=== PATIENT | male | born 1940 | race Caucasian/White ===

== ENCOUNTER → 2017-03-09 | Outpatient (CLI) | payer MEDICARE ==
[~2017-03-09] MED LIST: ASCO500C PO; ASPI-110 PO; ASPI81 PO; CALTTAB5 PO; CARV3.12 PO; CARV6.252 PO; CELE200C OR; OMEG600C2 PO; PREV30CA11 PO; PREV30CA36 PO; TAB-TAB PO; VYTO10TA29 PO; VYTO10TA8 PO
[2017-03-09 12:07] LABS: AUTOMATED NEUTROPHIL # 6.1 TH/MM3 (1.8-7.7); BASOPHIL # 0.1 TH/MM3 (0-0.2); BASOPHIL % 0.8 % (0.0-2.0); EOSINOPHIL # 0.5 TH/MM3 (0-0.4); EOSINOPHIL % 5.3 % (0.0-4.0); HEMO FLAGS DIFF FINAL; LYMPHOCYTE # 1.8 TH/MM3 (1.0-4.8); MEAN CORPUSCULAR HEMOGLOBIN 30.1 PG (27.0-34.0); MEAN CORPUSCULAR HGB CONC 33.4 % (32.0-36.0); MONO % 11.3 % (0.0-8.0); NEUT % 63.6 % (16.0-70.0); PLATELET COUNT 296 TH/MM3 (150-450); RED BLOOD COUNT 4.44 MIL/MM3 (4.50-5.90); RED CELL DISTRIBUTION WIDTH 12.8 % (11.6-17.2); WHITE BLOOD COUNT 9.6 TH/MM3 (4.0-11.0)
[2017-03-09 12:15] LABS: URIC ACID 3.6 MG/DL (2.6-7.2)
[2017-03-09 12:31] LABS: WESTERGREN SEDIMENTATION RATE 47 mm/hr (0-20)
== END ==
LOC: ELAB 10:19
PROVIDERS: ATTEND Orthopaedic Surgery Orthopaedic Surgery of the Spine
DX: N40.1 Benign prostatic hyperplasia with lower urinary tract symptoms (principal); M06.4 Inflammatory polyarthropathy
CPT/HCPCS: 36415; 84153; 84550; 85025; 85652; 86140

== ENCOUNTER 2017-10-23 21:37 | Inpatient (IN) | payer MEDICARE ==
[~2017-10-23] VITALS: Ht 182.9 cm; Wt 88.9 kg
[~2017-10-23 21:37] MED LIST changes: -ASCO500C PO; -ASPI-110 PO; +ASPI1TAB57 PO; -ASPI81 PO; -CALTTAB5 PO; -CARV3.12 PO; -CELE200C OR; -OMEG600C2 PO; +PRED5TAB PO; -PREV30CA11 PO; -TAB-TAB PO; -VYTO10TA29 PO
[2017-10-23 21:40] VITALS: BP 153/80; PULSE 73; RESP 16; TEMP 96.7; O2SAT 99
[2017-10-23] MEDS ORDERED: CELE200C PO (22:25)
--- NOTE | 2017-10-23 22:26 | PD ---
HPI Chief Complaint: GI Complaint Time Seen by Provider: 22:25 Travel History International Travel<30 days: No Contact w/Intl Traveler<30days: No Traveled to known affect area: No History of Present Illness HPI 77-year-old male came to the emergency room with history of hematochezia that started at 6:45 PM. Patient says that he had 10 polyps taken out during a colonoscopy about one week ago by Dr. Hernandez. He started having some abdominal discomfort 2 days later and was started on ciprofloxacin. However when the bleeding started today he called the GI office but did not hear back from anybody. In next one hour he had 3 more such episodes. Patient describes these bleeding as big clots being passed. History of point tenderness. Just generalized discomfort in the abdomen but no point tenderness. No history of vomiting or nausea. Vital signs were stable. Patient denies any weakness or dizziness. No syncopal episode. PFSH Past Medical History Narrative Medical List of his past medical, surgical, social and family history is reviewed from the nursing note. Cardiac Catheterization: Yes High Cholesterol: Yes Coronary Artery Disease: Yes Hypertension: Yes Immunizations Current: Yes Myocardial Infarction: Yes (x 2) Tetanus Vaccination: Unknown Influenza Vaccination: Yes Past Surgical History Coronary Artery Bypass Graft: Yes Genitourinary Surgery: Yes (turp) Other Surgery: Yes (pacemaker) Social History Alcohol Use: No Tobacco Use: No Substance Use: No Allergies-Medications (Allergen,Severity, Reaction): Coded Allergies: hydromorphone (Unverified Allergy, Severe, HALLUCINATIONS; AGITATION, 10/23) latex (Unverified Adverse Reaction, Severe, SKIN IRRITATION, 10/23/17) metoprolol (Unverified Adverse Reaction, Severe, FORGETS, BUT AVOIDS, 10/23) Comments List of his allergies reviewed from the nursing note. Reported Meds & Prescriptions Reported Meds & Active Scripts Active Reported Carvedilol 6.25 Mg Tab 6.25 Mg PO TID Prevacid (Lansoprazole) 30 Mg Capdr 30 Mg PO DAILY Vytorin (Ezetimibe-Simvastatin) 10-20 Mg Tab 1 Tab PO HS Narrative Medication List of his home medications reviewed from the nursing note. Review of Systems Except as stated in HPI: all other systems reviewed are Neg Gastrointestinal: Positive: Hematochezia Physical Exam Narrative GENERAL: Awake, alert, anxious, mild distress SKIN: Focused skin assessment warm/dry. HEAD: Atraumatic. Normocephalic. EYES: Pupils equal and round. No scleral icterus. No injection or drainage. ENT: No nasal bleeding or discharge. Mucous membranes pink and moist. NECK: Trachea midline. No JVD. CARDIOVASCULAR: Regular rate and rhythm. No murmur appreciated. RESPIRATORY: No accessory muscle use. Clear to auscultation. Breath sounds equal bilaterally. GASTROINTESTINAL: Abdomen soft, non-tender, nondistended. Hepatic and splenic margins not palpable. MUSCULOSKELETAL: No obvious deformities. No clubbing. No cyanosis. No edema. NEUROLOGICAL: Awake and alert. No obvious cranial nerve deficits. Motor grossly within normal limits. Normal speech. PSYCHIATRIC: Appropriate mood and affect; insight and judgment normal. Data Data Last Documented VS Orders Orders Basic Metabolic Panel (Bmp) (10/23/17 23:04) Complete Blood Count With Diff (10/23/17 23:04) Prothrombin Time / Inr (Pt) (10/23/17 23:04) Type And Screen (10/23/17 23:04) Ecg Monitoring (10/23/17 23:04) Iv Access Insert/Monitor (10/23/17 23:04) Oximetry (10/23/17 23:04) Sodium Chlor 0.9% 1000 Ml Inj (Ns 1000 M (10/23/17 23:04) Sodium Chloride 0.9% Flush (Ns Flush) (10/23/17 23:15) Admit Order (Ed Use Only) (10/24/17 00:03) Labs Laboratory Tests Test 10/23/17 23:20 White Blood Count 7.4 TH/MM3 Red Blood Count 5.08 MIL/MM3 Hemoglobin 15.7 GM/DL Hematocrit 46.2 % Mean Corpuscular Volume 91.0 FL Mean Corpuscular Hemoglobin 30.9 PG Mean Corpuscular Hemoglobin Concent 34.0 % Red Cell Distribution Width 13.0 % Platelet Count 288 TH/MM3 Mean Platelet Volume 8.7 FL Neutrophils (%) (Auto) 40.1 % Lymphocytes (%) (Auto) 41.7 % Monocytes (%) (Auto) 9.8 % Eosinophils (%) (Auto) 7.4 % Basophils (%) (Auto) 1.0 % Neutrophils # (Auto) 3.0 TH/MM3 Lymphocytes # (Auto) 3.1 TH/MM3 Monocytes # (Auto) 0.7 TH/MM3 Eosinophils # (Auto) 0.5 TH/MM3 Basophils # (Auto) 0.1 TH/MM3 CBC Comment DIFF FINAL Differential Comment Prothrombin Time 10.0 SEC Prothromb Time International Ratio 1.0 RATIO Blood Urea Nitrogen 10 MG/DL Creatinine 0.81 MG/DL Random Glucose 92 MG/DL Calcium Level 8.8 MG/DL Sodium Level 139 MEQ/L Potassium Level 4.1 MEQ/L Chloride Level 103 MEQ/L Carbon Dioxide Level 29.9 MEQ/L Anion Gap 6 MEQ/L Estimat Glomerular Filtration Rate 93 ML/MIN MDM Medical Decision Making Medical Screen Exam Complete: Yes Emergency Medical Condition: Yes Medical Record Reviewed: Yes Differential Diagnosis Lower GI bleed Narrative Course 12:08 AM blood test results of back and H&H are stable. I have put a call out for GI for Dr. Hernandez or whoever is covering for him. I have not heard back yet. I have admitted the patient to his primary care physician. Patient is getting 1 L of IV fluid bolus. 12:27 AM I discussed the case with the GI specialist who was healthcare applications analyst and he recommended octreotide bolus and a drip which has been ordered. Procedures EKG Prior to Arrival: No HemaPrompt Point of Care Internal Pos. & Neg. Controls: Passed Fecal Specimen Occult Blood: Positive Comment Gross blood on the gloved finger Diagnosis Primary Impression: Hematochezia Admitting Information Admitting Physician Requests: Admit Ken Chino MD Oct 23, 2017 22:26
[2017-10-23] MEDS ORDERED: SODIUM CHLOR 0.9% 1000 ML INJ 1,000 ML IV SCH (23:04)
[2017-10-23] MEDS ORDERED: SODIUM CHLORIDE 0.9% FLUSH 10 ML FLUSH IVF PRN (23:15)
[2017-10-23 23:22] VITALS: BP 184/88; PULSE 65; RESP 15; O2SAT 99
[2017-10-23 23:27] LABS: BASOPHIL # 0.1 TH/MM3 (0-0.2); EOSINOPHIL # 0.5 TH/MM3 (0-0.4); EOSINOPHIL % 7.4 % (0.0-4.0); HEMATOCRIT 46.2 % (39.0-51.0); HEMO FLAGS DIFF FINAL; LYMPH % 41.7 % (9.0-44.0); LYMPHOCYTE # 3.1 TH/MM3 (1.0-4.8); MEAN CORPUSCULAR HEMOGLOBIN 30.9 PG (27.0-34.0); MONO % 9.8 % (0.0-8.0); NEUT % 40.1 % (16.0-70.0); PLATELET COUNT 288 TH/MM3 (150-450); RED BLOOD COUNT 5.08 MIL/MM3 (4.50-5.90); WHITE BLOOD COUNT 7.4 TH/MM3 (4.0-11.0)
[2017-10-23 23:46] LABS: BICARBONATE 29.9 MEQ/L (21.0-32.0); POTASSIUM 4.1 MEQ/L (3.5-5.1)
[2017-10-23 23:56] VITALS: BP 175/81; PULSE 68; RESP 16; O2SAT 99
[2017-10-24] VITALS (8 sets, daily range): BP systolic 109–191; BP diastolic 56–87; PULSE 66–81; RESP 12–18; TEMP 97.7–98.5; O2SAT 94–98
[2017-10-24] MEDS ORDERED: NALOXONE HCL 0.4 MG/ML AMP IV PUSH PRN ×2 (00:15→17:30)
[2017-10-24] MEDS ORDERED: SODIUM CHLORIDE 0.9% FLUSH 10 ML FLUSH IV FLUSH PRN (00:15)
[2017-10-24] MEDS ORDERED: OCTREOTIDE INJ 50 MCG/ML AMP IV PUSH ONE (00:30)
[2017-10-24] MEDS: OCTREOTIDE INJ 500 MCG in SODIUM CHLORID 0.9% 500 ML INJ 499.5 ML IV SCH ×3 (02:16→21:41)
[2017-10-24] MEDS: CARVEDILOL 6.25 MG TAB PO SCH ×3 (08:14→17:45)
[2017-10-24] MEDS: SODIUM CHLORIDE 0.9% FLUSH 10 ML FLUSH IV FLUSH SCH ×2 (08:14→21:00)
[2017-10-24] MEDS: PANTOPRAZOLE SOD 40 MG DELAYED RELEASE TAB PO SCH (08:15)
--- NOTE | 2017-10-24 09:44 | HHI.HP ---
History of Present Illness Service Medicine Primary Care Physician Noe Howard, DO Admission Diagnosis lower GI bleed Diagnoses: (1) GI bleed (2) Abdominal pain History of Present Illness 77-year-old male came to the emergency room with history of hematochezia that started at 6:45 PM. Patient says that he had 10 polyps taken out during a colonoscopy about one week ago by Dr. Hernandez. He started having some abdominal discomfort 2 days later and was started on ciprofloxacin. However when the bleeding started today he called the GI office but did not hear back from anybody. In next one hour he had 3 more such episodes. Patient describes these bleeding as big clots being passed. History of point tenderness. Just generalized discomfort in the abdomen but no point tenderness. Review of Systems Respiratory: DENIES: Hemoptysis, Shortness of breath Cardiovascular: DENIES: Chest pain, Palpitations Gastrointestinal: COMPLAINS OF: Abdominal pain, Bloody stools Neurologic: DENIES: Headache, Seizures Psychiatric: DENIES: Anxiety, Confusion Past Family Social History Allergies: Coded Allergies: hydromorphone (Unverified Allergy, Severe, HALLUCINATIONS; AGITATION, 10/23) latex (Unverified Adverse Reaction, Severe, SKIN IRRITATION, 10/23/17) metoprolol (Unverified Adverse Reaction, Severe, FORGETS, BUT AVOIDS, 10/23) Past Medical History CAD HLD HTN Past Surgical History Coronary Artery Bypass Graft: Yes Genitourinary Surgery: Yes (turp) Other Surgery: Yes (pacemaker) Active Ordered Medications Current Medications Medications (Trade) Dose Ordered Sig/Jerilyn Route Start Time Stop Time Status Last Admin (NS Flush) 2 ml UNSCH PRN IV FLUSH 10/24/17 00:15 (NS Flush) 2 ml BID IV FLUSH 10/24/17 09:00 (Narcan Inj) 0.4 mg UNSCH PRN IV PUSH 10/24/17 00:15 (Coreg) 6.25 mg TID PO 10/24/17 09:00 10/24/17 08:14 (Protonix) 40 mg DAILY PO 10/24/17 09:00 10/24/17 08:15 Octreotide Acetate 500 mcg/ Sodium Chloride 500 ml @ 50 mls/hr Q10H IV 10/24/17 00:26 10/24/17 02:16 (Zetia) 10 mg HS PO 10/24/17 21:00 (Pravachol) 40 mg HS PO 10/24/17 21:00 Family History Mother with history of lung cancer Father heart disease Social History Denies smoking or ETOH use Lives with retired Physical Exam Vital Signs Vital Signs Date Time Temp Pulse Resp B/P (MAP) Pulse Ox O2 Delivery O2 Flow Rate FiO2 10/24/17 07:42 98.1 66 18 165/83 (110) 98 10/24/17 07:29 68 10/24/17 03:55 10/24/17 03:22 97.9 74 17 147/70 (95) 96 10/24/17 01:46 75 12 151/67 (95) 97 Room Air 10/23/17 23:56 68 16 175/81 (112) 99 Room Air 10/23/17 23:22 65 15 184/88 (120) 99 Room Air 10/23/17 21:40 96.7 73 16 153/80 (104) 99 Room Air Physical Exam GENERAL: This is a well-nourished, well-developed patient, in no apparent distress. SKIN: No rashes, ecchymoses or lesions. Cool and dry. HEAD: Atraumatic. Normocephalic. No temporal or scalp tenderness. EYES: Pupils equal round and reactive. Extraocular motions intact. No scleral icterus. No injection or drainage. ENT: Nose without bleeding, purulent drainage or septal hematoma. Throat without erythema, tonsillar hypertrophy or exudate. Uvula midline. Airway patent. NECK: Trachea midline. No JVD or lymphadenopathy. Supple, nontender, no meningeal signs. CARDIOVASCULAR: Regular rate and rhythm without murmurs, gallops, or rubs. RESPIRATORY: Clear to auscultation. Breath sounds equal bilaterally. No wheezes , rales, or rhonchi. GASTROINTESTINAL: Abdomen soft, non-tender, nondistended. No hepato-splenomegaly , or palpable masses. No guarding. MUSCULOSKELETAL: Extremities without clubbing, cyanosis, or edema. No joint tenderness, effusion, or edema noted. No calf tenderness. Negative Homans sign bilaterally. NEUROLOGICAL: Awake and alert. Cranial nerves II through XII intact. Motor and sensory grossly within normal limits. Five out of 5 muscle strength in all muscle groups. Normal speech. Laboratory Laboratory Tests Test 10/23/17 23:20 White Blood Count 7.4 Red Blood Count 5.08 Hemoglobin 15.7 Hematocrit 46.2 Mean Corpuscular Volume 91.0 Mean Corpuscular Hemoglobin 30.9 Mean Corpuscular Hemoglobin Concent 34.0 Red Cell Distribution Width 13.0 Platelet Count 288 Mean Platelet Volume 8.7 Neutrophils (%) (Auto) 40.1 Lymphocytes (%) (Auto) 41.7 Monocytes (%) (Auto) 9.8 Eosinophils (%) (Auto) 7.4 Basophils (%) (Auto) 1.0 Neutrophils # (Auto) 3.0 Lymphocytes # (Auto) 3.1 Monocytes # (Auto) 0.7 Eosinophils # (Auto) 0.5 Basophils # (Auto) 0.1 CBC Comment DIFF FINAL Differential Comment Prothrombin Time 10.0 Prothromb Time International Ratio 1.0 Blood Urea Nitrogen 10 Creatinine 0.81 Random Glucose 92 Calcium Level 8.8 Sodium Level 139 Potassium Level 4.1 Chloride Level 103 Carbon Dioxide Level 29.9 Anion Gap 6 Estimat Glomerular Filtration Rate 93 Result Diagram: 10/23/17231910/23/172319 Caprini VTE Risk Assessment Caprini VTE Risk Assessment: No/Low Risk (score <= 1) VTE Pharm Contraindication: Active bleeding Caprini Risk Assessment Model Point Value = 1 Point Value = 2 Point Value = 3 Point Value = 5 Age 41-60 Minor surgery BMI > 25 kg/m2 Swollen legs Varicose veins or History of unexplained or recurrent spontaneous Oral contraceptives or hormone replacement Sepsis (< 1 month) Serious lung disease, including pneumonia (< 1 month) Abnormal pulmonary function Acute myocardial infarction Congestive heart failure (< 1 month) History of inflammatory bowel disease Medical patient at bed rest Age 61-74 Arthroscopic surgery Major open surgery (> 45 min) Laparoscopic surgery (> 45 min) Malignancy Confined to bed (> 72 hours) Immobilizing plaster cast Central venous access Age >= 75 History of VTE Family history of VTE Factor V Leiden Prothrombin [id number] Lupus anticoagulant Anticardiolipin antibodies Elevated serum homocysteine Heparin-induced thrombocytopenia Other congenital or acquired thrombophilia Stroke (< 1 month) Elective arthroplasty Hip, pelvis, or leg fracture Acute spinal cord injury (< 1 month) Prophylaxis Regimen Total Risk Factor Score Risk Level Prophylaxis Regimen 0-1 Low Early ambulation 2 Moderate Order ONE of the following: *Sequential Compression Device (SCD) *Heparin 5000 units SQ BID 3-4 Higher Order ONE of the following medications: *Heparin 5000 units SQ TID *Enoxaparin/Lovenox 40 mg SQ daily (WT < 150 kg, CrCl > 30 mL/min) *Enoxaparin/Lovenox 30 mg SQ daily (WT < 150 kg, CrCl > 10-29 mL/min) *Enoxaparin/Lovenox 30 mg SQ BID (WT < 150 kg, CrCl > 30 mL/min) AND/OR *Sequential Compression Device (SCD) 5 or more Highest Order ONE of the following medications: *Heparin 5000 units SQ TID (Preferred with Epidurals) *Enoxaparin/Lovenox 40 mg SQ daily (WT < 150 kg, CrCl > 30 mL/min) *Enoxaparin/Lovenox 30 mg SQ daily (WT < 150 kg, CrCl > 10-29 mL/min) *Enoxaparin/Lovenox 30 mg SQ BID (WT < 150 kg, CrCl > 30 mL/min) AND *Sequential Compression Device (SCD) Assessment and Plan Problem List: (1) Hematochezia ICD Codes: K92.1 - Melena Status: Acute (2) Abdominal pain ICD Codes: R10.9 - Unspecified abdominal pain Assessment and Plan 10/24/17 Hematochezia: GI consulted. Clear liquid diet and sandostatin drip. Frequent bloody stools. Hemoglobin is stable at 15.7. Colonscopy done 1 week ago with over 10 polyps removed. Has had abdominal discomfort since that point was started on ciprofloxacin outpatient. HTN; continue home medications well controlled on coreg HLD: continue home medications Labs in am I and the TAX COLLECTION COORDINATOR have both examined this patient and reviewed this note and I agree with these findings and plan of care. Maribeth Manriquez Oct 24, 2017 09:44
[2017-10-24] MEDS: cloNIDine HCL 0.1 MG TAB PO PRN (12:01)
[2017-10-24] MEDS: ACETAMINOPHEN 325 MG TAB PO PRN (13:47)
--- NOTE | 2017-10-24 15:54 | MB ---
cc: ANTONIO CINTRON MD,SG LOWE D.O., M.D. DATE OF CONSULTATION: 10/24/2017 DATE OF : 1940 REASON FOR CONSULTATION I was asked to see this patient in consultation by Dr. Howard for evaluation of GI bleed. I saw the patient at about 10:45 this morning but was unable to dictate until now. HISTORY OF PRESENT ILLNESS The patient is a pleasant 77-year-old white male with a history of multiple advanced colon polyps. He had a colonoscopy done on October 17 and the patient had a polyp removed from the cecum, ascending colon, transverse colon as well as descending colon. There was also scattered diverticula throughout the colon. The polyps were removed via hot polypectomy technique. There was also a polyp in the ascending colon which could not be removed. A day or so after the procedure complained of right lower quadrant pain and thought he may have some form of post-polypectomy syndrome. He was given Cipro and this resolved his pain. Unfortunately yesterday early he had multiple episodes of bright red blood per rectum. He became light-headed, somewhat dizzy and he came to the emergency room. Hemoglobin was 15.7. At the time I saw him in the emergency room he was still passing bright red blood per rectum. He denies any dysphagia, odynophagia, nausea or vomiting. No melena. His abdominal pain has resolved. No fever or chills. He does take aspirin as well as Celebrex but no other blood thinners. PAST MEDICAL HISTORY 1. Adenomatous polyps and serrated adenomas. 2. Coronary artery disease. 3. Gastroesophageal reflux disease. 4. Hypertension. 5. Dyslipidemia. PAST SURGICAL HISTORY 1. TURP. 2. Coronary artery bypass graft. 3. Some type of neck surgery. 4. Possible pacemaker. ALLERGIES 1. LATEX. 2. METOPROLOL. 3. HYDROMORPHONE. FAMILY HISTORY Significant for coronary artery disease but no colon cancer or colon polyps. SOCIAL HISTORY He is a former smoker, stopped drinking in 2008. REVIEW OF SYSTEMS CONSTITUTIONAL: No weight loss, fever or chills. CARDIOPULMONARY: No chest pain, palpitations, wheezing or SOB GASTROINTESTINAL: Please see above. Otherwise unremarkable 10-point review of systems. MEDICATIONS Medications at this time include: 1. Zetia. 2. Pravachol. 3. Tylenol. 4. Catapres. 5. Norvasc. 6. Coreg. 7. Protonix. 8. Narcan. As an outpatient he has been gettin. Aspirin. 2. Celebrex. 3. Caltrate. 4. Vytorin. 5. Lansoprazole. 6. Carvedilol. 7. Flonase. 8. Gas-X. PHYSICAL EXAMINATION VITAL SIGNS: Blood pressure when I first saw him this morning was 165/83, pulse 66, respiratory rate 18, temperature 98.1. GENERAL: He is a well-developed, well-nourished white male who appears in no acute distress, although he did have a bowel motion which showed bright red blood per rectum. He did not appear to be orthostatic. NECK: Supple. No thyromegaly or lymphadenopathy. HEENT: Pupils equal, round and reactive to light. No scleral icterus. Oropharyngeal cavity has dental caries. No tongue deviation or candidal lesion. Hearing is intact. LUNGS: Clear to auscultation and percussion. HEART: Regular rhythm. No gross murmurs heard. ABDOMEN: Soft, nondistended, nontender. No organomegaly or masses. No ascites or hernias. Bowel sounds positive in all quadrants. RECTAL: I did not do a rectal exam but the ER doctor did and bright red blood was noted. EXTREMITIES: No clubbing, cyanosis or edema. NEUROLOGIC: Cranial nerves II through XII are grossly intact. SKIN: Warm and moist. DATA BASE Hemoglobin was 15.7, hematocrit 46.2, MCV 91, white blood count of 7400, platelet count 288,000. BUN 10, creatinine 0.81, potassium 4.1. Prothrombin time is 10, INR 1.0. IMPRESSION 1. Lower GI bleeding/hematochezia: Patient may have a post-polypoid bleed, could also be diverticular bleeding. The chance of upper GI bleed is low in the differential as there are no black stools and BUN and creatinine are normal. 2. History of colon polyps, multiple: He had serrated adenomas; these are considered advanced polyps. One polyp in the ascending could not be removed. He had multiple polypectomies mentioned above. 3. Colonic diverticulosis scattered throughout. 4. Right lower quadrant pain resolved. This might have been a post-polypectomy syndrome, a non-transmural burn. It is better at this time. RECOMMENDATIONS 1. Transfuse as needed. 2. Follow up labs. 3. Octreotide; this was suggested by myself to the ER physician last night. 4. At this point consideration for either a colonoscopy with rapid clean-out first, bleeding scan or angiography. We talked about the merits of all this testing. The colonoscopy would involve another prep and he is somewhat hesitant about that. He also understands that he has some right lower quadrant pain and there may be some thinning of the bowel wall and you worry about perforation. He wants to avoid another colonoscopy and decided to go directly to arteriogram. After discussion with radiology they suggested a stat. bleeding scan first (nuclear medicine bleeding scan) before they do an arteriogram. 5. Further recommendations depending on how he does. Sg Dillard MD SP/YOU /2:57 PM /3:13 PM INDU
--- NOTE | 2017-10-24 17:06 | RADRPT ---
EXAM DATE/TIME: 10/24/2017 14:32 [facility] COMPARISON: No previous studies available for comparison. INDICATIONS : Blood in stool with abdominal pain, nausea and vomiting. DOSE: 20.7 mCi Tc99m Ultratag labeled red blood cells IV IMAGIN hrs MEDICAL HISTORY : Myocardial infarction. Gastroesophageal reflux disease. Hypercholesterolemia. SURGICAL HISTORY : Total knee replacement, right. Tonsillectomy. CABG ENCOUNTER: Initial ACUITY: 3 days PAIN SCALE: 3/10 LOCATION: Abdomen. TECHNIQUE: Following the modified in vitro labeling of autologous red cells, dynamic continuous images were acqu ired for the specified interval. FINDINGS: BIODISTRIBUTION: There is a very good labeling of red cells without significant uptake in the gastric wall. There is good delineation of the blood pool of the spleen and abdominal vessels. BLEEDING: No episodes of active GI bleeding are observed during specified interval of continuous observation. CONCLUSION: 1. Negative gastrointestinal bleeding scan Terry Redd MD on October 24, 2017 at 17:03 Board Certified Radiologist. This report was verified electronically.
[2017-10-24] MEDS ORDERED: FLUMAZENIL 0.5 MG/5 ML VIAL IV PUSH PRN ×2 (17:30)
[2017-10-24 18:38] LABS: AUTOMATED NEUTROPHIL # 2.9 TH/MM3 (1.8-7.7); BASOPHIL # 0.1 TH/MM3 (0-0.2); BASOPHIL % 1.1 % (0.0-2.0); EOSINOPHIL # 0.1 TH/MM3 (0-0.4); EOSINOPHIL % 1.6 % (0.0-4.0); HEMATOCRIT 29.3 % (39.0-51.0); HEMO FLAGS DIFF FINAL; LYMPH % 36.3 % (9.0-44.0); MEAN CELL VOLUME 91.8 FL (80.0-100.0); MEAN CORPUSCULAR HEMOGLOBIN 31.9 PG (27.0-34.0); MEAN CORPUSCULAR HGB CONC 34.8 % (32.0-36.0); PLATELET COUNT 225 TH/MM3 (150-450); WHITE BLOOD COUNT 5.5 TH/MM3 (4.0-11.0)
[2017-10-24] MEDS ORDERED: NON-FORMULARY DRUG (Ezetimibe-Simvastatin (Vytorin) 1 TAB) PO SCH (21:00)
[2017-10-24] MEDS: EZETIMIBE 10 MG TAB PO SCH (21:41)
[2017-10-24] MEDS: PRAVASTATIN SOD 40 MG TAB PO SCH (21:41)
[2017-10-25] VITALS (11 sets, daily range): BP systolic 104–142; BP diastolic 56–73; PULSE 60–114; RESP 17–20; TEMP 95.2–98.2; O2SAT 97–100
[2017-10-25] MEDS: ACETAMINOPHEN 325 MG TAB PO PRN ×3 (00:12→16:00)
[2017-10-25] MEDS: OCTREOTIDE INJ 500 MCG in SODIUM CHLORID 0.9% 500 ML INJ 499.5 ML IV SCH ×2 (06:11→16:14)
[2017-10-25 08:24] LABS: AUTOMATED NEUTROPHIL # 3.3 TH/MM3 (1.8-7.7); BASOPHIL # 0.1 TH/MM3 (0-0.2); EOSINOPHIL # 0.2 TH/MM3 (0-0.4); EOSINOPHIL % 3.5 % (0.0-4.0); HEMATOCRIT 28.2 % (39.0-51.0); HEMO FLAGS DIFF FINAL; LYMPH % 35.4 % (9.0-44.0); LYMPHOCYTE # 2.3 TH/MM3 (1.0-4.8); MEAN CELL VOLUME 90.7 FL (80.0-100.0); MEAN CORPUSCULAR HEMOGLOBIN 30.7 PG (27.0-34.0); MEAN CORPUSCULAR HGB CONC 33.8 % (32.0-36.0); MONO % 9.8 % (0.0-8.0); NEUT % 50.3 % (16.0-70.0); PLATELET COUNT 228 TH/MM3 (150-450); RED BLOOD COUNT 3.11 MIL/MM3 (4.50-5.90); WHITE BLOOD COUNT 6.5 TH/MM3 (4.0-11.0)
[2017-10-25 08:30] LABS: INTERNATIONAL NORMALIZED RATIO 1.1 RATIO; PROTHROMBIN TIME - PATIENT 10.8 SEC (9.8-11.6)
--- NOTE | 2017-10-25 08:49 | HHI.GIFU ---
GI Follow-up Note Consult Follow-up Subjective: Patient just had BM-old blood. This ius his first BM since yesterday afternoon. RN reports pt fell in bathroom. Objective: PHYSICAL EXAMINATION: Vitals signs stable No fever NECK: Neck is supple, no JVD, no lymphadenopathy. CHEST: Chest is clear to auscultation and percussion. CARDIAC: Regular rate and rhythm with no murmur gallop or rubs. ABDOMEN: Soft, nondistended, nontender; no hepatosplenomegaly; bowel sounds are present in all four quadrants. EXTREMITIES: No cedema. SKIN: No jaundice. SHIRT TRIMMER: alert and oriented times three. Available Data (labs, X- Rays, Procedues) : hgb 10.2--9.6 this am ASSESSMENT/PLAN: 1. Lower GI bleeding/hematochezia: better. may be related to polypectomies--, could also be diverticular bleeding. 2. History of colon polyps, multiple 3. Colonic diverticulosis scattered throughout. 4. Right lower quadrant pain resolved. 5. recent fall-your W/U in this regard RECOMMENDATIONS 1. Transfuse as needed. 2. Follow up labs. 3. Octreotide -cont for now 4. clear liquids It was a pleasure seeing Thierry Bales. Thank you for this consult. Entered by: Sg Mario MD Oct 25, 2017 08:49
[2017-10-25 08:51] LABS: ALT (GPT) 15 U/L (12-78); ANION GAP 6 MEQ/L (5-15); AST (GOT) 14 U/L (15-37); BLOOD UREA NITROGEN 11 MG/DL (7-18); CHLORIDE 109 MEQ/L (98-107); GLOMERULAR FILTRATION RATE 113 ML/MIN (>89); POTASSIUM 4.2 MEQ/L (3.5-5.1); SODIUM (NA) 144 MEQ/L (136-145)
[2017-10-25 08:54] LABS: ALKALINE PHOSPHATASE 48 U/L (45-117); TOTAL BILIRUBIN ADULT 0.3 MG/DL (0.2-1.0)
[2017-10-25] MEDS: SODIUM CHLORIDE 0.9% FLUSH 10 ML FLUSH IV FLUSH SCH ×2 (09:00→20:10)
[2017-10-25] MEDS: PANTOPRAZOLE SOD 40 MG DELAYED RELEASE TAB PO SCH (09:19)
[2017-10-25] MEDS: CARVEDILOL 6.25 MG TAB PO SCH ×3 (09:19→16:09)
--- NOTE | 2017-10-25 11:43 | HHI.PR ---
Subjective Remarks Patient resting comfortably in bed. Blood stools have improved since yesterday. fall reported per nursing Objective Vital Signs Date Time Temp Pulse Resp B/P (MAP) Pulse Ox O2 Delivery O2 Flow Rate FiO2 10/25/17 11:20 96.4 61 18 134/62 (86) 100 10/25/17 09:20 95.8 70 18 135/62 (86) 97 10/25/17 08:00 96.6 60 18 133/68 (89) 100 10/25/17 04:15 96.9 67 17 139/73 (95) 99 10/25/17 02:05 96.8 60 17 129/72 (91) 98 10/25/17 00:37 98.2 64 18 104/56 (72) 98 10/24/17 20:34 98.5 72 18 109/56 (73) 94 10/24/17 13:32 98.3 81 18 134/75 (94) 96 I/O 10/24/17 10/24/17 10/24/17 10/25/17 10/25/17 10/25/17 07:00 15:00 23:00 07:00 15:00 23:00 Intake Total 640 ml Balance 640 ml Intake Oral 240 ml IV Total 400 ml # Voids 0 # Bowel Movements 0 Result Diagram: 10/25/17 0630 10/25/17 0630 Imaging Last 72 hours Impressions GI Bleed Scan Nuclear Medicine 10/24/17 0000 Signed Impressions: Service Date/Time: Tuesday, October 24, 2017 14:32 - CONCLUSION: 1. Negative gastrointestinal bleeding scan Terry Redd MD Objective Remarks GENERAL: alert and cooperative SKIN: Warm and dry. HEAD: Normocephalic. EYES: No scleral icterus. No injection or drainage. NECK: Supple, trachea midline. No JVD or lymphadenopathy. CARDIOVASCULAR: Regular rate and rhythm without murmurs, gallops, or rubs. RESPIRATORY: Breath sounds equal bilaterally. No accessory muscle use. GASTROINTESTINAL: Abdomen soft, non-tender, nondistended. MUSCULOSKELETAL: No cyanosis, or edema. BACK: Nontender without obvious deformity. No CVA tenderness. Medications and IVs Current Medications Medications (Trade) Dose Ordered Sig/Jerilyn Route Start Time Stop Time Status Last Admin (NS Flush) 2 ml UNSCH PRN IV FLUSH 10/24/17 00:15 (NS Flush) 2 ml BID IV FLUSH 10/24/17 09:00 (Narcan Inj) 0.4 mg UNSCH PRN IV PUSH 10/24/17 00:15 (Coreg) 6.25 mg TID PO 10/24/17 09:00 10/25/17 09:19 (Protonix) 40 mg DAILY PO 10/24/17 09:00 10/25/17 09:19 Octreotide Acetate 500 mcg/ Sodium Chloride 500 ml @ 50 mls/hr Q10H IV 10/24/17 00:26 10/25/17 06:11 (Zetia) 10 mg HS PO 10/24/17 21:00 10/24/17 21:41 (Pravachol) 40 mg HS PO 10/24/17 21:00 10/24/17 21:41 (Catapres) 0.1 mg Q6H PRN PO 10/24/17 11:45 10/24/17 12:01 (Norvasc) 10 mg DAILY PO 10/24/17 11:45 (Tylenol) 650 mg Q4H PRN PO 10/24/17 13:15 10/25/17 09:19 Assessment and Plan Problem List: (1) Hematochezia ICD Codes: K92.1 - Melena Status: Acute (2) Abdominal pain ICD Codes: R10.9 - Unspecified abdominal pain Assessment and Plan 10/24/17 Hematochezia: GI consulted. Clear liquid diet and sandostatin drip. Frequent bloody stools. Hemoglobin is stable at 15.7. Colonscopy done 1 week ago with over 10 polyps removed. Has had abdominal discomfort since that point was started on ciprofloxacin outpatient. HTN; continue home medications well controlled on coreg HLD: continue home medications Labs in am 10/25/07 Hematochezia: GI consulted. Bleeding scan ordered and negative scan for bleeding. Continued on Clear liquid diet and sandostatin drip. Bloody stools improved. Hemoglobin is stable dropped to 9.6 today will transfuse as needed. Per GI note may be related to polypectomies. HTN; elevated yesterday. amlodipine added and prn clonidine s/p fall: fall reported per nursing. Neuro checks every 4 hours. Will order PT and OT. Right shoulder and back discomfort reported that was relieved with tylenol I and the NETWORK RELAY TESTER have both examined this patient and reviewed this note and I agree with these findings and plan of care. Maribeth Manriquez. NETWORK RELAY TESTER Oct 25, 2017 11:43
[2017-10-25] MEDS ORDERED: HYOSCYAMINE 0.125 MG TAB SL PRN (19:45)
[2017-10-25] MEDS: LANSOPRAZOLE SOLUTAB 30 MG TAB PO SCH (19:58)
[2017-10-25] MEDS: PRAVASTATIN SOD 40 MG TAB PO SCH (19:58)
[2017-10-25] MEDS: EZETIMIBE 10 MG TAB PO SCH (19:59)
[2017-10-25] MEDS: SIMETHICONE 80 MG CHEWABLE TAB PO PRN (21:05)
[2017-10-26] VITALS (7 sets, daily range): BP systolic 103–152; BP diastolic 50–69; PULSE 63–100; RESP 17–18; TEMP 96.1–96.8; O2SAT 94–97
[2017-10-26] MEDS: SIMETHICONE 80 MG CHEWABLE TAB PO PRN ×4 (01:21→18:05)
[2017-10-26] MEDS: OCTREOTIDE INJ 500 MCG in SODIUM CHLORID 0.9% 500 ML INJ 499.5 ML IV SCH (02:41)
[2017-10-26] MEDS: ACETAMINOPHEN 325 MG TAB PO PRN (02:44)
[2017-10-26] MEDS: ACETAMINOPHEN/HYDROcodone 325 MG/5 MG TAB PO PRN ×2 (08:01→13:37)
[2017-10-26] MEDS: CARVEDILOL 6.25 MG TAB PO SCH ×3 (08:03→18:05)
[2017-10-26] MEDS: SODIUM CHLORIDE 0.9% FLUSH 10 ML FLUSH IV FLUSH SCH ×2 (08:03→20:04)
[2017-10-26 08:13] LABS: AUTOMATED NEUTROPHIL # 7.6 TH/MM3 (1.8-7.7); BASOPHIL % 0.4 % (0.0-2.0); EOSINOPHIL % 0.3 % (0.0-4.0); HEMATOCRIT 23.7 % (39.0-51.0); HEMO FLAGS DIFF FINAL; LYMPHOCYTE # 1.2 TH/MM3 (1.0-4.8); MEAN CELL VOLUME 90.8 FL (80.0-100.0); MEAN CORPUSCULAR HGB CONC 35.2 % (32.0-36.0); MONO % 10.6 % (0.0-8.0); NEUT % 76.7 % (16.0-70.0); PLATELET COUNT 191 TH/MM3 (150-450); RED BLOOD COUNT 2.61 MIL/MM3 (4.50-5.90); RED CELL DISTRIBUTION WIDTH 12.6 % (11.6-17.2); WHITE BLOOD COUNT 9.9 TH/MM3 (4.0-11.0)
[2017-10-26 08:19] LABS: BICARBONATE 27.1 MEQ/L (21.0-32.0); POTASSIUM 3.6 MEQ/L (3.5-5.1)
--- NOTE | 2017-10-26 09:24 | HHI.GIFU ---
GI Follow-up Note Consult Follow-up Subjective: Patient laying in bed comfortably this am. had upper abd pain last PM. pain improved with Levsin. pt also wanted Prevacid instead of Protonix. some GERD-better this am. No BM or bleeding seen. No N/V Objective: PHYSICAL EXAMINATION: 135/59-69-18 No fever HEENT: no jaundice. Throat is clear. NECK: no JVD, no lymphadenopathy. CHEST: Chest is clear to auscultation and percussion. CARDIAC: Regular rate and rhythm with no murmur gallop or rubs. ABDOMEN: Soft, nondistended, nontender; no hepatosplenomegaly; bowel sounds are present in all four quadrants. EXTREMITIES: No clubbing, cyanosis, or edema. SKIN: no rash; no jaundice. HEAD TRIMMER: alert and oriented times three. Available Data (labs, X- Rays, Procedues) : hgb dropped to 8.3 but no overt gi bleeding seen ASSESSMENT/PLAN: 1. Lower GI bleeding/hematochezia: none today. may be related to polypectomies could also be diverticular bleeding. 2. History of colon polyps, multiple 3. Colonic diverticulosis scattered throughout. 4. Right lower quadrant pain resolved. 5. recent fall 6. Upper abd pain/GERD RECOMMENDATIONS 1. Transfuse as needed. 2. Follow up labs-amylase/lipase/lft 3. D/C Octreotide 4. soft diet 5. If upper abd pain returns-will do CT scan It was a pleasure seeing Thierry Bales. Thank you for this consult. Entered by: Sg Mario MD Oct 26, 2017 09:24
--- NOTE | 2017-10-26 10:43 | HHI.PR ---
Subjective Remarks Patient complaining pain in back region. Tender on palpation. Objective Vital Signs Date Time Temp Pulse Resp B/P (MAP) Pulse Ox O2 Delivery O2 Flow Rate FiO2 10/26/17 08:00 96.5 69 18 135/59 (84) 95 10/26/17 04:15 96.8 80 17 127/62 (83) 95 10/26/17 00:38 96.7 64 18 142/69 (93) 97 10/25/17 20:00 97.8 60 18 128/56 (80) 98 10/25/17 19:50 97.8 60 18 128/56 (80) 98 10/25/17 16:00 95.6 68 18 142/71 (94) 100 10/25/17 15:03 73 10/25/17 11:20 96.4 61 18 134/62 (86) 100 I/O 10/25/17 10/25/17 10/25/17 10/26/17 10/26/17 10/26/17 07:00 15:00 23:00 07:00 15:00 23:00 Intake Total 640 ml 720 ml 360 ml 740 ml Balance 640 ml 720 ml 360 ml 740 ml Intake Oral 240 ml 720 ml 360 ml 240 ml IV Total 400 ml 500 ml # Voids 0 2 2 1 # Bowel Movements 0 1 0 0 Result Diagram: 10/26/17 0650 10/26/17 0650 Imaging Last 72 hours Impressions GI Bleed Scan Nuclear Medicine 10/24/17 0000 Signed Impressions: Service Date/Time: Tuesday, October 24, 2017 14:32 - CONCLUSION: 1. Negative gastrointestinal bleeding scan Terry Redd MD Objective Remarks GENERAL: alert and cooperative SKIN: Warm and dry. HEAD: Normocephalic. EYES: No scleral icterus. No injection or drainage. NECK: Supple, trachea midline. No JVD or lymphadenopathy. CARDIOVASCULAR: Regular rate and rhythm without murmurs, gallops, or rubs. RESPIRATORY: Breath sounds equal bilaterally. No accessory muscle use. GASTROINTESTINAL: Abdomen soft, non-tender, nondistended. MUSCULOSKELETAL: No cyanosis, or edema. Tenderness palpated in mid back region BACK: Nontender without obvious deformity. No CVA tenderness. Medications and IVs Current Medications Medications (Trade) Dose Ordered Sig/Jerilyn Route Start Time Stop Time Status Last Admin (NS Flush) 2 ml UNSCH PRN IV FLUSH 10/24/17 00:15 (NS Flush) 2 ml BID IV FLUSH 10/24/17 09:00 (Narcan Inj) 0.4 mg UNSCH PRN IV PUSH 10/24/17 00:15 (Coreg) 6.25 mg TID PO 10/24/17 09:00 10/26/17 08:03 (Zetia) 10 mg HS PO 10/24/17 21:00 10/25/17 19:59 (Pravachol) 40 mg HS PO 10/24/17 21:00 10/25/17 19:58 (Catapres) 0.1 mg Q6H PRN PO 10/24/17 11:45 10/24/17 12:01 (Norvasc) 10 mg DAILY PO 10/24/17 11:45 (Tylenol) 650 mg Q4H PRN PO 10/24/17 13:15 10/26/17 02:44 (Prevacid Odt) 30 mg HS@2000 PO 10/25/17 20:00 10/25/17 19:58 (Levsin) 0.125 mg Q6H PRN SL 10/25/17 19:45 (Mylicon Chew) 80 mg Q4H PRN PO 10/25/17 20:15 10/26/17 06:01 ([place] 5-325 Mg) 1 tab Q4H PRN PO 10/26/17 07:00 10/26/17 08:01 Assessment and Plan Problem List: (1) Hematochezia ICD Codes: K92.1 - Melena Status: Acute (2) Abdominal pain ICD Codes: R10.9 - Unspecified abdominal pain Assessment and Plan 10/24/17 Hematochezia: GI consulted. Clear liquid diet and sandostatin drip. Frequent bloody stools. Hemoglobin is stable at 15.7. Colonscopy done 1 week ago with over 10 polyps removed. Has had abdominal discomfort since that point was started on ciprofloxacin outpatient. HTN; continue home medications well controlled on coreg HLD: continue home medications Labs in am 10/25/07 Hematochezia: GI consulted. Bleeding scan ordered and negative scan for bleeding. Continued on Clear liquid diet and sandostatin drip. Bloody stools improved. Hemoglobin is stable dropped to 9.6 today will transfuse as needed. Per GI note may be related to polypectomies. HTN; elevated yesterday. amlodipine added and prn clonidine s/p fall: fall reported per nursing. Neuro checks every 4 hours. Will order PT and OT. Right shoulder and back discomfort reported that was relieved with tylenol 10/26/17 Hematochezia: Sandostatin drip stopped and diet advanced. HGB decreased to 8.3 from 9.6 yesterday. Blood pressure is stable. Recheck in AM. Prevacid and simethicone started. S/P Fall: complaining of back discomfort in mid back region will obtain rib xray. [place] added for pain . Will need to monitor carefully as patient is sensitive to pain medication. PT and OT started. I and the TWO WAY RADIO TECHNICIAN have both examined this patient and reviewed this note and I agree with these findings and plan of care. Maribeth Manriquez. TWO WAY RADIO TECHNICIAN Oct 26, 2017 10:43
--- NOTE | 2017-10-26 11:15 | RADRPT ---
EXAM DATE/TIME: 10/26/2017 09:57 [facility] COMPARISON: No previous studies available for comparison. INDICATIONS : Pain post fall. MEDICAL HISTORY : Myocardial infarction. Gastroesophageal reflux disease. Hypercholesterolemia. SURGICAL HISTORY : Total knee replacement, right. Tonsillectomy. CABG. ENCOUNTER: Subsequent ACUITY: 1 day PAIN SCORE: 3/10 LOCATION: Upper mid back. FINDINGS: The cardiac silhouette is enlarged in transverse diameter. The lungs are free of acute parenchymal op acity. No effusions are identified. There is no evidence of pneumothorax. Median sternotomy wires ar e present. There is no evidence of acute fracture. Bony mineralization is normal. CONCLUSION: 1. There is no evidence of acute fracture. Terry Redd MD on October 26, 2017 at 11:12 Board Certified Radiologist. This report was verified electronically.
[2017-10-26 13:33] LABS: INDIRECT BILIRUBIN 0.3 MG/DL (0.0-0.8); TOTAL BILIRUBIN ADULT 0.7 MG/DL (0.2-1.0)
[2017-10-26] MEDS ORDERED: PEG (High)/E-LYTE SOLN 4000 ML BTL PO ONE (16:30)
[2017-10-26 18:28] LABS: HEMATOCRIT 23.5 % (39.0-51.0); REVIEW FLAG FINAL
[2017-10-26] MEDS: PRAVASTATIN SOD 40 MG TAB PO SCH (20:03)
[2017-10-26] MEDS: LANSOPRAZOLE SOLUTAB 30 MG TAB PO SCH (20:03)
[2017-10-26] MEDS: EZETIMIBE 10 MG TAB PO SCH (20:03)
[2017-10-26] MEDS: OCTREOTIDE 500 MCG/NS 500 ML - 50 mcg/hr IV SCH ×2 (20:04)
[2017-10-27] VITALS (13 sets, daily range): BP systolic 110–149; BP diastolic 55–76; PULSE 73–115; RESP 17–20; TEMP 96.2–100.6; O2SAT 93–96
[2017-10-27] MEDS: ACETAMINOPHEN 325 MG TAB PO PRN ×3 (00:29→23:12)
[2017-10-27] MEDS: OCTREOTIDE 500 MCG/NS 500 ML - 50 mcg/hr IV SCH ×4 (05:24→14:08)
[2017-10-27 06:22] LABS: AUTOMATED NEUTROPHIL # 9.3 TH/MM3 (1.8-7.7); BASOPHIL % 0.1 % (0.0-2.0); HEMATOCRIT 21.6 % (39.0-51.0); HEMO FLAGS DIFF FINAL; LYMPH % 6.6 % (9.0-44.0); LYMPHOCYTE # 0.7 TH/MM3 (1.0-4.8); MEAN CELL VOLUME 91.1 FL (80.0-100.0); MEAN CORPUSCULAR HEMOGLOBIN 31.7 PG (27.0-34.0); MEAN CORPUSCULAR HGB CONC 34.8 % (32.0-36.0); MONO % 9.7 % (0.0-8.0); NEUT % 83.6 % (16.0-70.0); PLATELET COUNT 167 TH/MM3 (150-450); RED BLOOD COUNT 2.36 MIL/MM3 (4.50-5.90); RED CELL DISTRIBUTION WIDTH 12.7 % (11.6-17.2); WHITE BLOOD COUNT 11.1 TH/MM3 (4.0-11.0)
[2017-10-27] MEDS: SODIUM CHLORIDE 0.9% FLUSH 10 ML FLUSH IV FLUSH SCH ×2 (08:27→20:16)
[2017-10-27] MEDS: CARVEDILOL 6.25 MG TAB PO SCH ×3 (08:27→17:50)
--- NOTE | 2017-10-27 08:43 | HHI.PR ---
Subjective Remarks bleeding persists hgb now 7.5 will transfuse and have colonoscopy today will consult colorectal as backup shoule operative intervention be required Objective Vital Signs Date Time Temp Pulse Resp B/P (MAP) Pulse Ox O2 Delivery O2 Flow Rate FiO2 10/27/17 03:27 96.9 98 18 110/55 (73) 94 10/27/17 00:00 100.6 115 18 142/65 (90) 93 10/26/17 23:05 100 10/26/17 19:20 96.7 89 18 152/67 (95) 95 10/26/17 16:00 96.1 97 18 140/66 (90) 94 10/26/17 12:00 96.7 63 18 103/50 (67) 96 I/O 10/26/17 10/26/17 10/26/17 10/27/17 10/27/17 10/27/17 07:00 15:00 23:00 07:00 15:00 23:00 Intake Total 740 ml 480 ml 720 ml 0 ml Balance 740 ml 480 ml 720 ml 0 ml Intake Oral 240 ml 480 ml 720 ml 0 ml IV Total 500 ml # Voids 1 1 3 4 # Bowel Movements 0 1 2 6 Result Diagram: 10/27/17 0557 10/26/17 0650 Imaging Last Impressions Ribs X-Ray 10/26/17 0000 Signed Impressions: Service Date/Time: Thursday, October 26, 2017 09:57 - CONCLUSION: 1. There is no evidence of acute fracture. Terry Redd MD GI Bleed Scan Nuclear Medicine 10/24/17 0000 Signed Impressions: Service Date/Time: Tuesday, October 24, 2017 14:32 - CONCLUSION: 1. Negative gastrointestinal bleeding scan Terry Redd MD Objective Remarks GENERAL: Well-nourished, well-developed patient. SKIN: Warm and dry. HEAD: Normocephalic. EYES: No scleral icterus. No injection or drainage. NECK: Supple, trachea midline. No JVD or lymphadenopathy. CARDIOVASCULAR: Regular rate and rhythm without murmurs, gallops, or rubs. RESPIRATORY: Breath sounds equal bilaterally. No accessory muscle use. GASTROINTESTINAL: Abdomen soft, generalized tenderness espc lower mabdomen nondistended. EXTREMITIES: No cyanosis, or edema. NEUROLOGICAL: Awake, alert, and oriented x 3. Non-focal. Medications and IVs Inpatient Medications Acetaminophen (Tylenol) 650 mg Q4H PRN PO HEADACHE Last administered on 00:29; Start 10/24/17 at 13:15 Acetaminophen/ Hydrocodone Bitart ([place] 5-325 Mg) 1 tab Q4H PRN PO pain 1-10 Last administered on 10/26/17 13:37; Start 10/26/17 at 07:00 Amlodipine Besylate (Norvasc) 10 mg DAILY PO Last administered on 10/27/17 08: 26; Start 10/24/17 at 11:45 Carvedilol (Coreg) 6.25 mg TID PO Last administered on 10/27/17 08:27; Start 10/24/17 at 09:00 Clonidine (Catapres) 0.1 mg Q6H PRN PO SBP> OR = 180, DBP> OR = 100 Last administered on 10/24/17 12:01; Start 10/24/17 at 11:45 EZETIMIBE (Zetia) 10 mg HS PO Last administered on 10/26/17 20:03; Start 10/24 at 21:00 Flumazenil (Romazicon Inj) 0.2 mg Q1M PRN IV PUSH OVERSEDATION; Start 10/24/17 at 17:30; Stop 10/24/17 at 17:34; Status DC Hyoscyamine Sulfate (Levsin) 0.125 mg Q6H PRN SL ABDOMINAL CRAMPING; Start 10/25/17 at 19:45 Lansoprazole (Prevacid Odt) 30 mg HS@2000 PO Last administered on 10/26/17 20: 03; Start 10/25/17 at 20:00 Naloxone HCl (Narcan Inj) 0.1 mg Q2M PRN IV PUSH OVERSEDATION; Start 10/24/17 at 17:30; Stop 10/24/17 at 17:34; Status DC Octreotide Acetate 500 mcg/ Sodium Chloride 500 ml @ 50 mls/hr Q10H IV Last administered on 10/27/17 05:24; Start 10/26/17 at 19:00 Octreotide Acetate (SandoSTATIN INJ) 50 mcg ONCE ONCE IV PUSH Last administered on 10/24/17 02:17; Start 10/24/17 at 00:30; Stop 10/24/17 at 00:35 ; Status DC Pantoprazole Sodium (Protonix) 40 mg DAILY PO Last administered on 10/25/17 09 :19; Start 10/24/17 at 09:00; Stop 10/25/17 at 19:30; Status DC Polyethylene Glycol/ Electrolytes (Colyte Liq) 4,000 ml ONCE ONCE PO Last administered on 10/26/17 18:05; Start 10/26/17 at 16:30; Stop 10/26/17 at 16:31 ; Status DC Pravastatin Sodium (Pravachol) 40 mg HS PO Last administered on 10/26/17 20:03 ; Start 10/24/17 at 21:00 Simethicone (Mylicon Chew) 80 mg Q4H PRN PO GAS PAIN Last administered on 18:05; Start 10/25/17 at 20:15 Sodium Chloride (NS Flush) 2 ml BID IV FLUSH Last administered on 10/27/17 08: 27; Start 10/24/17 at 09:00 Assessment and Plan Problem List: (1) GI bleed ICD Codes: K92.2 - Gastrointestinal hemorrhage, unspecified Plan: transfuse and scope repeat cbc am Assessment and Plan GI Bleedb gi and colorectal consulted Discussed Condition With patient and family Noe Howard DO Oct 27, 2017 08:43
--- NOTE | 2017-10-27 10:24 | HHI.GIFU ---
GI Follow-up Note Consult Follow-up Subjective: Patient laying in bed comfortably- had more bleeding after Octreotide stopped. for colon this am. transfusion ordered Objective: PHYSICAL EXAMINATION: Vitals signs stable No fever HEENT: no jaundice. Throat is clear. NECK: Neck is supple, no JVD, no lymphadenopathy. CHEST: Chest is clear to auscultation and percussion. CARDIAC: Regular rate and rhythm with no murmur gallop or rubs. ABDOMEN: Soft, nondistended, nontender; no hepatosplenomegaly; bowel sounds are present in all four quadrants. EXTREMITIES: No edema. SKIN: Normal; no rash; no jaundice. DIETARY AIDE COOK: alert and oriented times three. Available Data (labs, X- Rays, Procedues) : mildly elevated LFT and lipase. Hgb is 7.5 ASSESSMENT/PLAN: 1. Lower GI bleeding/hematochezia: started again .may be related to polypectomies could also be diverticular bleeding. 2. History of colon polyps, multiple 3. Colonic diverticulosis scattered throughout. 4. Right lower quadrant pain resolved. 5. recent fall 6. Upper abd pain/GERD-better 7. Elevated LFT and lipase RECOMMENDATIONS 1. Transfuse 2. Colonoscopy today. Indications, rrisks, alternatives, benefits, limitations, complications d/w pt/family including risk of bleeding, perforation, infection and small possibility of . 3. Conrt Octreotide 4. NPO for colon 5. If upper abd pain returns-will do CT scan It was a pleasure seeing Thierry Bales. Thank you for this consult. Entered by: Sg Mario MD Oct 27, 2017 10:24
[2017-10-27] MEDS ORDERED: ePHEDrine/NS 25 MG/5 ML SYR IV ONE (12:00)
[2017-10-27] MEDS ORDERED: LIDOCAINE HCL 1% PF 5 ML SYRINGE OTHER ONE (12:00)
[2017-10-27] MEDS ORDERED: PROPOFOL 200 MG/20 ML AMP IV ONE (12:00)
[2017-10-27] MEDS ORDERED: PHENYLEPH/NS 1000 MCG/10 ML SYR IV ONE (12:00)
--- NOTE | 2017-10-27 12:40 | GIPROC ---
[facility] [address] [facility]. [facility], [address] COLONOSCOPY PROCEDURE REPORT EXAM DATE: 10/27/2017 PATIENT NAME: Thierry Bales MR #: [id number] BIRTHDATE: 1940 ENDOSCOPIST: Sg Dillard MD ORDER #: [id number] UPPER MARKER: Veronika Chinchilla and Deb Kendall STATUS: inpatient INDICATIONS: The patient is a 77 yr old male here for a colonoscopy due to hematochezia PROCEDURE PERFORMED: Colonoscopy, diagnostic MEDICATIONS: None and Per Anesthesia. PREP QUALITY: suboptimal PREP TYPE:GoLytely ESTIMATED BLOOD LOSS: None CONSENT: The patient understands the risks and benefits of the procedure and understands that these risks include, but are not limited to: sedation, allergic reaction, infection, perforation and/or bleeding. Alternative means of evaluation and treatment include, among others: physical exam, x-rays, and/or surgical intervention. The patient elects to proceed with this endoscopic procedure. medical equipment was checked for proper function. Hand hygiene and appropriate measures for infection prevention was taken. After the risks, benefits and alternatives of the procedure were thoroughly explained, Informed consent was verified, confirmed and timeout was successfully executed by the treatment team. A digital exam revealed no abnormalities of the rectum The Pentax [id number] endoscope was introduced through the anus and advanced to the ileum. The instrument was then slowly withdrawn as the colon was fully examined. COLON FINDINGS: A single non-bleeding non-bleeding and clean-based ulcer, measuring 10mm in size, was found at the cecum. A flat polyp measuring 2 cm in size was found in the ascending colon. Mild diverticulosis was noted in the ascending colon, transverse colon, descending colon, and sigmoid colon. No bleeding was noted from the diverticulosis. Old blood noted in distal transverse to descending colon-no active bleeding lesions seen. Small internal hemorrhoids were found. Retroflexion was performed and was normal The scope was then completely withdrawn from the patient and the procedure terminated. PROCEDURE WITHDRAWAL TIME:32minutes ADVERSE EVENTS: There were no complications. IMPRESSIONS: 1. Single non-bleeding ulcer, measuring 10mm in size, was found at the cecum 2. A flat polyp measuring 2 cm in size was found in the ascending colon -left alone 3. Mild diverticulosis was noted in the ascending colon, transverse colon, descending colon, and sigmoid colon 4. Old blood noted in distal transverse to descending colon-no active bleeding lesions seen 5. Small internal hemorrhoids 6. Retroflexion was performed and was normal 7. Revealed no abnormalities of the rectum RECOMMENDATIONS: Observation RECALL: NONE Sg Dillard MD eSigned: Sg Dillard MD 10/27/2017 12:39 PM cc: PATIENT NAME: Thierry Bales MR#: [id number]
[2017-10-27] MEDS ORDERED: DO NOT ADM ANY ANTICOAGULANT DRUGS PRN (12:42)
[2017-10-27] MEDS ORDERED: NALOXONE HCL 0.4 MG/ML AMP IV PUSH PRN (12:45)
[2017-10-27] MEDS ORDERED: FLUMAZENIL 0.5 MG/5 ML VIAL IV PUSH PRN ×2 (12:45)
[2017-10-27] MEDS: SUCRALFATE 1 GM TAB PO SCH ×2 (17:50→20:16)
[2017-10-27] MEDS: EZETIMIBE 10 MG TAB PO SCH (20:16)
[2017-10-27] MEDS: LANSOPRAZOLE SOLUTAB 30 MG TAB PO SCH (20:16)
[2017-10-27] MEDS: PRAVASTATIN SOD 40 MG TAB PO SCH (20:16)
[2017-10-28] VITALS (8 sets, daily range): BP systolic 150–201; BP diastolic 70–93; PULSE 80–89; RESP 17–18; TEMP 97.1–99.7; O2SAT 94–99
[2017-10-28] MEDS: OCTREOTIDE 500 MCG/NS 500 ML - 50 mcg/hr IV SCH ×6 (01:30→23:04)
[2017-10-28 05:08] LABS: MEAN CELL VOLUME 91.1 FL (80.0-100.0); MEAN CORPUSCULAR HEMOGLOBIN 31.6 PG (27.0-34.0); MEAN CORPUSCULAR HGB CONC 34.6 % (32.0-36.0); PLATELET COUNT 136 TH/MM3 (150-450); RED BLOOD COUNT 2.97 MIL/MM3 (4.50-5.90); RED CELL DISTRIBUTION WIDTH 13.5 % (11.6-17.2); WHITE BLOOD COUNT 7.8 TH/MM3 (4.0-11.0)
[2017-10-28 05:16] LABS: HEMO FLAGS AUTO DIFF
[2017-10-28 08:31] LABS: BANDS 2 % (0-6); NEUTROPHIL # MANUAL DIFF 6.6 TH/MM3 (1.8-7.7); POLYS (SEG NEUTROPHILS) 83 % (16-70); WBC DIFF SAMPLE 100
[2017-10-28 08:32] LABS: PLATELET ESTIMATE SMEAR LOW (NORMAL); PLATELET MORPHOLOGY NORMAL (NORMAL); SCAN/DIFF FINAL DIFF MANUAL
[2017-10-28] MEDS: SUCRALFATE 1 GM TAB PO SCH ×4 (09:18→23:04)
[2017-10-28] MEDS: CARVEDILOL 6.25 MG TAB PO SCH ×3 (09:18→17:05)
[2017-10-28] MEDS: SODIUM CHLORIDE 0.9% FLUSH 10 ML FLUSH IV FLUSH SCH (09:18)
--- NOTE | 2017-10-28 10:41 | HHI.PR ---
Subjective Remarks no further bleeding hgb 9.5 s/p transfusioin r sided pain persists colonoscopy no active bleed identified Objective Vital Signs Date Time Temp Pulse Resp B/P (MAP) Pulse Ox O2 Delivery O2 Flow Rate FiO2 10/28/17 08:00 99.0 80 17 151/70 (97) 97 10/28/17 04:00 98.0 80 18 153/71 (98) 95 10/28/17 04:00 80 10/28/17 00:00 98.0 80 18 150/70 (96) 95 10/27/17 23:00 94 Nasal Cannula 2.00 10/27/17 23:00 84 10/27/17 20:00 97.8 73 18 149/68 (95) 94 10/27/17 18:44 Nasal Cannula 2.00 10/27/17 17:32 97.2 84 18 147/65 95 10/27/17 17:15 98.4 84 18 136/62 95 10/27/17 16:00 97.9 80 17 113/58 (76) 95 10/27/17 14:05 98.1 77 18 124/60 95 10/27/17 13:17 98.0 82 18 126/76 (93) 94 10/27/17 12:54 77 16 112/57 (75) 97 Nasal Cannula 3 10/27/17 12:45 80 16 98/57 (71) 96 Nasal Cannula 3 10/27/17 12:35 100.5 80 16 95/54 (68) 90 Nasal Cannula 3 10/27/17 12:00 97.0 95 20 133/62 (85) 94 10/27/17 10:40 99.1 98 18 136/60 94 I/O 10/27/17 10/27/17 10/27/17 10/28/17 10/28/17 10/28/17 07:00 15:00 23:00 07:00 15:00 23:00 Intake Total 0 ml 400 ml 595 ml 446 ml Output Total 600 ml Balance 0 ml 400 ml 595 ml -154 ml Intake Oral 0 ml 180 ml IV Total 446 ml Packed Cells 400 ml 400 ml Blood Product IV Normal Saline Flush 15 ml Output Urine Total 600 ml # Voids 4 2 # Bowel Movements 6 0 Result Diagram: 10/28/17 0444 10/26/17 0650 Objective Remarks GENERAL: Well-nourished, well-developed patient. SKIN: Warm and dry. HEAD: Normocephalic. EYES: No scleral icterus. No injection or drainage. NECK: Supple, trachea midline. No JVD or lymphadenopathy. CARDIOVASCULAR: Regular rate and rhythm without murmurs, gallops, or rubs. RESPIRATORY: Breath sounds equal bilaterally. No accessory muscle use. GASTROINTESTINAL: Abdomen soft, r sided tenderness oresent EXTREMITIES: No cyanosis, or edema. NEUROLOGICAL: Awake, alert, and oriented x 3. Non-focal. Medications and IVs Inpatient Medications Acetaminophen (Tylenol) 650 mg Q4H PRN PO HEADACHE Last administered on 23:12; Start 10/24/17 at 13:15 Acetaminophen/ Hydrocodone Bitart ([place] 5-325 Mg) 1 tab Q4H PRN PO pain 1-10 Last administered on 10/26/17 13:37; Start 10/26/17 at 07:00 Amlodipine Besylate (Norvasc) 10 mg DAILY PO Last administered on 10/27/17 08: 26; Start 10/24/17 at 11:45 Carvedilol (Coreg) 6.25 mg TID PO Last administered on 10/28/17 09:18; Start 10/24/17 at 09:00 Clonidine (Catapres) 0.1 mg Q6H PRN PO SBP> OR = 180, DBP> OR = 100 Last administered on 10/24/17 12:01; Start 10/24/17 at 11:45 EZETIMIBE (Zetia) 10 mg HS PO Last administered on 10/27/17 20:16; Start 10/24 at 21:00 Flumazenil (Romazicon Inj) 0.2 mg Q1M PRN IV PUSH OVERSEDATION; Start 10/27/17 at 12:45; Stop 10/28/17 at 12:44 Hyoscyamine Sulfate (Levsin) 0.125 mg Q6H PRN SL ABDOMINAL CRAMPING; Start 10/25/17 at 19:45 Lansoprazole (Prevacid Odt) 30 mg HS@2000 PO Last administered on 10/27/17 20: 16; Start 10/25/17 at 20:00 Miscellaneous Information ALL NURSING DEPARTME... UNSCH PRN .XX SEE LABEL COMMENTS; Start 10/27/17 at 12:42; Stop 10/28/17 at 12:41 Naloxone HCl (Narcan Inj) 0.1 mg Q2M PRN IV PUSH OVERSEDATION; Start 10/27/17 at 12:45; Stop 10/28/17 at 12:44 Octreotide Acetate 500 mcg/ Sodium Chloride 500 ml @ 50 mls/hr Q10H IV Last administered on 10/28/17 01:30; Start 10/26/17 at 19:00 Octreotide Acetate (SandoSTATIN INJ) 50 mcg ONCE ONCE IV PUSH Last administered on 10/24/17 02:17; Start 10/24/17 at 00:30; Stop 10/24/17 at 00:35 ; Status DC Pantoprazole Sodium (Protonix) 40 mg DAILY PO Last administered on 10/25/17 09 :19; Start 10/24/17 at 09:00; Stop 10/25/17 at 19:30; Status DC Polyethylene Glycol/ Electrolytes (Colyte Liq) 4,000 ml ONCE ONCE PO Last administered on 10/26/17 18:05; Start 10/26/17 at 16:30; Stop 10/26/17 at 16:31 ; Status DC Pravastatin Sodium (Pravachol) 40 mg HS PO Last administered on 10/27/17 20:16 ; Start 10/24/17 at 21:00 Simethicone (Mylicon Chew) 80 mg Q4H PRN PO GAS PAIN Last administered on 18:05; Start 10/25/17 at 20:15 Sodium Chloride (NS Flush) 2 ml BID IV FLUSH Last administered on 10/28/17 09 :18; Start 10/24/17 at 09:00 Sucralfate (Carafate) 1 gm ACHS PO Last administered on 10/28/17 09:18; Start 10/27/17 at 17:00 Assessment and Plan Problem List: (1) GI bleed ICD Codes: K92.2 - Gastrointestinal hemorrhage, unspecified Plan: transfuse and scope repeat cbc am Assessment and Plan GI Bleed hgb 9.5 no source identified will continue conservative rx Noe Howard DO Oct 28, 2017 10:41
--- NOTE | 2017-10-28 12:05 | MB ---
cc: JOHN FLORES MD DATE OF CONSULTATION: 10/28/2017 REASON FOR CONSULTATION: HISTORY OF PRESENT ILLNESS This is a 77-year-old male who is approximately two weeks status post multiple right colon polypectomies. The patient has had some right-sided abdominal soreness followed by GI bleeding. He was admitted to the hospital and had continued bleeding with significant hemoglobin drop to seven. On repeat colonoscopy he had no active bleeding. GI bleeding scan was negative. At this time the patient denies abdominal pain. He has had no further bleeding. His hemoglobin has risen to 9.5 after two units of blood and transfusion. MEDICATIONS: The patient was on aspirin at home. ASSESSMENT Post polypectomy bleeding that appears to have stopped. The bleeding was possibly aggravated by aspirin therapy. His post polypectomy abdominal tenderness appears to be resolved. PLAN: Continue conservative treatment. MD JIMMY Flores/JIMMY /11:11 AM /11:54 AM
--- NOTE | 2017-10-28 13:37 | HHI.GIFU ---
GI Follow-up Note Consult Follow-up Subjective: Patient laying in bed -no GI bleeding (no BM). + flatus. Some right sided abd pain Objective: PHYSICAL EXAMINATION: Vitals signs stable No fever HEENT: Pupils round and reactive to light; normocephalic; atraumatic; no jaundice. Throat is clear. NECK: Neck is supple, no JVD, no lymphadenopathy. CHEST: Chest is clear to auscultation and percussion. CARDIAC: Regular rate and rhythm with no murmur gallop or rubs. ABDOMEN: Soft, nondistended, minimal right sided tenderness; no hepatosplenomegaly; bowel sounds are present in all four quadrants. EXTREMITIES: No clubbing, cyanosis, or edema. SKIN: no jaundice. DIGITAL FORENSIC EXAMINER: No focal deficits; alert and oriented times three. Available Data (labs, X- Rays, Procedues) : Hgb 9.5 ASSESSMENT/PLAN: 1. Lower GI bleeding/hematochezia -none today. A colonic ulcer was noted in the cecum-prob related to polypectomies. Other source of bleeding may be diverticulosis. Unfortunately prpe was not the best and the other polypectomy sites and an AVM's could not be seen. Old bloos was noted in the distal transverse colon/descending colon area 2. History of colon polyps, multiple 3. Colonic diverticulosis scattered throughout. 4. Right lower quadrant pain-returns 5. recent fall 6. Upper abd pain/GERD-better 7. Elevated LFT and lipase 8. Cecal ulcer RECOMMENDATIONS 1. Transfuse as needed 2. Ct scan of abd/pelvis 3. Cont Octreotide 4. Full liquid diet 5. Carafate added-sometimes helps colonic ulcers It was a pleasure seeing Thierry Bales. Thank you for this consult. Entered by: Sg Mario MD Oct 28, 2017 13:37
[2017-10-28] MEDS ORDERED: DIATRIZOATE MEGLUM/DIATRIZOATE SOD 9 ML CUP PO ONE (14:30)
[2017-10-28] MEDS: cloNIDine HCL 0.1 MG TAB PO PRN ×2 (17:05→23:15)
[2017-10-28] MEDS ORDERED: IOHEXOL 350 MG/ML 10 ML VIAL (for RAD DIAG) IVCONTRAST ONE (22:01)
--- NOTE | 2017-10-28 22:32 | RADRPT ---
EXAM DATE/TIME: 10/28/2017 21:53 [facility] COMPARISON: No previous studies available for comparison. INDICATIONS : Abdominal pain with possible GI bleed. IV CONTRAST: 75 cc Omnipaque 350 (iohexol) IV ORAL CONTRAST: Prescribed oral contrast ingested. RADIATION DOSE: 7.85 CTDIvol (mGy) MEDICAL HISTORY : Cardiovascular disease. Hypertension. Gastroesophageal reflux disease. SURGICAL HISTORY : CABG ENCOUNTER: Initial ACUITY: 1 day PAIN SCALE: 7/10 LOCATION: abdomen TECHNIQUE: Volumetric scanning of the abdomen and pelvis was performed. Using automated exposure control and ad justment of the mA and/or kV according to patient size, radiation dose was kept as low as reasonably achievable to obtain optimal diagnostic quality images. DICOM format image data is available electro nically for review and comparison. FINDINGS: LOWER LUNGS: There are mild bilateral pleural effusions being greater on the right. There is accompanying atelecta sis or consolidation at the right lung base. The patient is status post sternotomy. LIVER: Homogeneous density without lesion. There is no dilation of the biliary tree. The gallbladder is dis tended. The gallbladder wall appears thickened. The common bile duct is distended at 1.2 cm. SPLEEN: Normal size without lesion. PANCREAS: Within normal limits. KIDNEYS: Normal in size and shape. There is no mass, stone or hydronephrosis. There is mild nonspecific perin ephric stranding seen bilaterally. ADRENAL GLANDS: Within normal limits. VASCULAR: There is no aortic aneurysm. Calcifications are seen throughout the arterial system. BOWEL/MESENTERY: There are scattered colonic diverticula. Significant bowel thickening or distention is not seen. ABDOMINAL WALL: Within normal limits. RETROPERITONEUM: There is no lymphadenopathy. BLADDER: No wall thickening or mass. REPRODUCTIVE: Prostatic calcifications are present. INGUINAL: There is no lymphadenopathy or hernia. MUSCULOSKELETAL: There is degenerative change at the lumbar spine and at the hips. CONCLUSION: 1. Distended gallbladder with thickening of the gallbladder wall. Skin be correlated with any clinica l signs of cholecystitis. The common bile duct is dilated at 1.2 cm. Calcified gallstones are not see n. 2. Mild bilateral pleural effusions. There is some consolidation or atelectasis at the right lung bas e. 3. Scattered colonic diverticula. León Reina MD on October 28, 2017 at 22:26 Board Certified Radiologist. This report was verified electronically.
[2017-10-28] MEDS: LANSOPRAZOLE SOLUTAB 30 MG TAB PO SCH (23:04)
[2017-10-28] MEDS: PRAVASTATIN SOD 40 MG TAB PO SCH (23:04)
[2017-10-28] MEDS: EZETIMIBE 10 MG TAB PO SCH (23:04)
[2017-10-29] VITALS (10 sets, daily range): BP systolic 109–192; BP diastolic 64–91; PULSE 64–86; RESP 18–19; TEMP 95.4–97.6; O2SAT 91–99
[2017-10-29] MEDS: ACETAMINOPHEN/HYDROcodone 325 MG/5 MG TAB PO PRN ×2 (03:47→09:51)
[2017-10-29 06:45] LABS: AUTOMATED NEUTROPHIL # 5.8 TH/MM3 (1.8-7.7); BASOPHIL % 0.2 % (0.0-2.0); EOSINOPHIL % 0.1 % (0.0-4.0); HEMATOCRIT 28.4 % (39.0-51.0); HEMO FLAGS DIFF FINAL; LYMPH % 10.4 % (9.0-44.0); LYMPHOCYTE # 0.8 TH/MM3 (1.0-4.8); MEAN CELL VOLUME 91.3 FL (80.0-100.0); MEAN CORPUSCULAR HEMOGLOBIN 31.7 PG (27.0-34.0); MEAN CORPUSCULAR HGB CONC 34.7 % (32.0-36.0); MONO % 11.2 % (0.0-8.0); NEUT % 78.1 % (16.0-70.0); PLATELET COUNT 159 TH/MM3 (150-450); RED CELL DISTRIBUTION WIDTH 13.7 % (11.6-17.2); WHITE BLOOD COUNT 7.5 TH/MM3 (4.0-11.0)
[2017-10-29] MEDS: OCTREOTIDE 500 MCG/NS 500 ML - 50 mcg/hr IV SCH ×2 (07:00)
[2017-10-29 07:06] LABS: INDIRECT BILIRUBIN 0.3 MG/DL (0.0-0.8); TOTAL BILIRUBIN ADULT 0.8 MG/DL (0.2-1.0)
[2017-10-29] MEDS: SUCRALFATE 1 GM TAB PO SCH ×4 (08:00→20:24)
[2017-10-29] MEDS: CARVEDILOL 6.25 MG TAB PO SCH ×3 (09:51→18:41)
[2017-10-29] MEDS: SODIUM CHLORIDE 0.9% FLUSH 10 ML FLUSH IV FLUSH SCH ×2 (09:52→20:25)
--- NOTE | 2017-10-29 10:09 | HHI.GIFU ---
GI Follow-up Note Consult Follow-up Subjective: Patient laying in bed-right sided abd present but better. No BM's or bleeding today Objective: PHYSICAL EXAMINATION: Vitals signs stable No fever HEENT: no jaundice. NECK: Neck is supple, no JVD, no lymphadenopathy. CHEST: Chest is clear to auscultation and percussion. CARDIAC: Regular rate and rhythm with no murmur gallop or rubs. ABDOMEN: Soft, nondistended, mild upper abd tenderness; no hepatosplenomegaly; bowel sounds are present in all four quadrants. EXTREMITIES: No edema. SKIN: no rash; no jaundice. GUN CLUB MANAGER: No focal deficits; alert and oriented times three. Available Data (labs, X- Rays, Procedues) : CT-reviewed with pt ASSESSMENT/PLAN: 1. Lower GI bleeding/hematochezia -none today. A colonic ulcer was noted in the cecum-prob related to polypectomies. Other source of bleeding may be diverticulosis. Unfortunately prep was not the best and the other polypectomy sites and an AVM's could not be seen. Old blood was noted in the distal transverse colon/descending colon area 2. History of colon polyps, multiple 3. Colonic diverticulosis scattered throughout. 4. Right lower quadrant pain-returns 5. recent fall 6. Upper abd pain/GERD-better 7. Elevated LFT and lipase 8. Cecal ulcer 9. Abnormal CT scan--dilated GB with thickened wall and dilated CBD RECOMMENDATIONS 1. MRCP 2. Consult Surgery (Dr. Talley et al) 3. Stop Octreotide --bleeding has stopped and it is a "negative Gut hormone" and it can slow down the biliary tree 4. Full liquid diet 5. Carafate added-sometimes helps colonic ulcers It was a pleasure seeing Thierry Bales. Thank you for this consult. Entered by: Sg Mario MD Oct 29, 2017 10:09
--- NOTE | 2017-10-29 11:39 | MB ---
cc: CHACHO ALFARO M.D., SUNIL P. M.D. DATE OF CONSULTATION: 10/29/2017 REASON FOR CONSULTATION Distended gallbladder. HISTORY OF PRESENT ILLNESS This is a pleasant 77-year-old gentleman who has had numerous polypectomies in the past and most recently about 2 weeks ago began experiencing some abdominal discomfort. This became more severe and he started having a fair amount of bleeding. He came to the hospital where a repeat colonoscopy was done, did not see a source of bleeding. He improved somewhat but then a CT scan done yesterday showed a distended gallbladder and a dilated common duct. They did not see any stones in the gallbladder. Surgery was consulted for assistance in management. He is scheduled for an MRCP today or tomorrow. His main complaint was diffuse abdominal pain which is dramatically improved. Now he just has pain that is slight in the right upper quadrant. He has not ate well in the last 2 weeks. He has been here in the hospital for a week. REVIEW OF SYSTEMS He has no shortness of breath or chest pain. No neurologic deficits. No psychiatric illness. No endocrine problems. He has no chest pain or shortness of breath. The abdominal pain is somewhat subsided. PAST MEDICAL HISTORY 1. Known coronary artery disease. 2. Hypertension. 3. Hyperlipidemia. PAST SURGICAL HISTORY 1. Five-way bypass through a median sternotomy. 2. TURP. 3. Neck surgery. 4. Orthopedic surgery. Dr. Pimentel is his huc ob. PHYSICAL EXAMINATION GENERAL: On physical exam he is sitting up in bed. He looks fairly comfortably and is on oxygen. NECK: Supple without carotid bruits. Trachea midline. CHEST: Clear. HEART: Regular rate. He has a median sternotomy scar. ABDOMEN: Mild soreness in the right upper quadrant with deep palpation. No rebound or guarding. No masses are appreciated. EXTREMITIES: Moves all extremities. No clubbing, cyanosis or edema. NEUROLOGIC: Alert and oriented x3 without focal deficits. LABORATORY DATA Hemoglobin went down to 8 requiring 2 units of blood. His white count today is 7, hematocrit 28. Chemistry shows slightly elevated liver enzymes, AST. Total bilirubin is normal; it was 0.3 and now is 0.8. Albumin is 2.2. Lipase two days ago was 498, now 154. IMAGING STUDIES Nuclear bleeding scan on 10/24/2017 did not show any bleeding. On 10/26/2017 he had rib x-rays looking for a fracture in the right upper quadrant and no fracture was identified. Abdominal CT scan done yesterday shows distended gallbladder with a dilated common duct, bilateral pleural effusions with atelectasis. Reviewed the consultation from Dr. Green and the notes from Dr. Dillard. Colonoscopy by Dr. Dillard done during this hospitalization showed a non-bleeding ulcer in the cecum, some hemorrhoids and some old blood with diverticulosis. ASSESSMENT A 77-year-old gentleman who had numerous polypectomies, resulted in some abdominal discomfort and lower GI bleed that has ceased. There is some thought this was related to aspirin therapy that he was taking. He is getting an MRCP today to evaluate his ductal system. He has never had any symptoms of biliary colic in the past. I suspect his gallbladder may be distended from being n.p.o. on and off for the last two weeks and being ill. At this time I would treat him conservatively, awaiting the MRCP results. Advised him he may or may not benefit from cholecystectomy depending on his clinical status and the results of his MRCP. Will follow closely during this admission. MD TARIQ Valnetino/YOU /11:07 AM /11:18 AM [email or web address]
--- NOTE | 2017-10-29 13:01 | HHI.PR ---
Subjective Remarks Denies bloody stools overnight and no GI complaints. Objective Vital Signs Date Time Temp Pulse Resp B/P (MAP) Pulse Ox O2 Delivery O2 Flow Rate FiO2 10/29/17 12:00 96.0 64 18 109/64 (79) 91 10/29/17 08:00 95.4 73 18 156/72 (100) 98 10/29/17 06:47 72 10/29/17 03:15 97.1 86 19 165/78 (107) 93 10/28/17 23:05 98.2 89 18 183/88 (119) 95 10/28/17 20:43 98.9 84 18 181/85 (117) 94 10/28/17 20:01 97 Nasal Cannula 2.00 10/28/17 18:15 98.9 82 17 179/73 (108) 98 10/28/17 16:00 99.7 83 17 201/93 (129) 98 I/O 10/28/17 10/28/17 10/28/17 10/29/17 10/29/17 10/29/17 07:00 15:00 23:00 07:00 15:00 23:00 Intake Total 446 ml 460 ml 360 ml 240 ml 143 ml Output Total 600 ml Balance -154 ml 460 ml 360 ml 240 ml 143 ml Intake Oral 460 ml 360 ml 240 ml IV Total 446 ml 143 ml Output Urine Total 600 ml # Voids 3 3 1 # Bowel Movements 0 0 0 Result Diagram: 10/29/17 0600 10/26/17 0650 Imaging colonoscopy Procedures Current Medications Medications (Trade) Dose Ordered Sig/Jerilyn Route Start Time Stop Time Status Last Admin (NS Flush) 2 ml UNSCH PRN IV FLUSH 10/24/17 00:15 10/29/17 12:01 (NS Flush) 2 ml BID IV FLUSH 10/24/17 09:00 10/29/17 09:52 (Narcan Inj) 0.4 mg UNSCH PRN IV PUSH 10/24/17 00:15 (Coreg) 6.25 mg TID PO 10/24/17 09:00 10/29/17 09:51 (Zetia) 10 mg HS PO 10/24/17 21:00 10/28/17 23:04 (Pravachol) 40 mg HS PO 10/24/17 21:00 10/28/17 23:04 (Catapres) 0.1 mg Q6H PRN PO 10/24/17 11:45 10/28/17 23:15 (Tylenol) 650 mg Q4H PRN PO 10/24/17 13:15 10/27/17 23:12 (Prevacid Odt) 30 mg HS@2000 PO 10/25/17 20:00 10/28/17 23:04 (Levsin) 0.125 mg Q6H PRN SL 10/25/17 19:45 (Mylicon Chew) 80 mg Q4H PRN PO 10/25/17 20:15 10/26/17 18:05 ([place] 5-325 Mg) 1 tab Q4H PRN PO 10/26/17 07:00 10/29/17 09:51 (Carafate) 1 gm ACHS PO 10/27/17 17:00 10/29/17 12:00 Objective Remarks Bleeding has apparently stopped and the source was not identified. He is being followed by GI and Surgery presently. Medications and IVs Current Medications Medications (Trade) Dose Ordered Sig/Jerilyn Route Start Time Stop Time Status Last Admin (NS Flush) 2 ml UNSCH PRN IV FLUSH 10/24/17 00:15 10/29/17 12:01 (NS Flush) 2 ml BID IV FLUSH 10/24/17 09:00 10/29/17 09:52 (Narcan Inj) 0.4 mg UNSCH PRN IV PUSH 10/24/17 00:15 (Coreg) 6.25 mg TID PO 10/24/17 09:00 10/29/17 09:51 (Zetia) 10 mg HS PO 10/24/17 21:00 10/28/17 23:04 (Pravachol) 40 mg HS PO 10/24/17 21:00 10/28/17 23:04 (Catapres) 0.1 mg Q6H PRN PO 10/24/17 11:45 10/28/17 23:15 (Tylenol) 650 mg Q4H PRN PO 10/24/17 13:15 10/27/17 23:12 (Prevacid Odt) 30 mg HS@2000 PO 10/25/17 20:00 10/28/17 23:04 (Levsin) 0.125 mg Q6H PRN SL 10/25/17 19:45 (Mylicon Chew) 80 mg Q4H PRN PO 10/25/17 20:15 10/26/17 18:05 ([place] 5-325 Mg) 1 tab Q4H PRN PO 10/26/17 07:00 10/29/17 09:51 (Carafate) 1 gm ACHS PO 10/27/17 17:00 10/29/17 12:00 Assessment and Plan Assessment and Plan GI Bleeding - Resolved and source not identified. GI and Surgery following. Discussed Condition With Patient Discharge Planning Home when cleared by Jonatan Lee Oct 29, 2017 13:01
--- NOTE | 2017-10-29 18:53 | RADRPT ---
EXAM DATE/TIME: 10/29/2017 17:25 [facility] COMPARISON: No previous studies available for comparison. INDICATIONS : Pain. MEDICAL HISTORY : Cardiovascular disease. Hypertension. Gastroesophageal reflux disease. SURGICAL HISTORY : CABG Fusion, cervical. Tonsillectomy. Right knee. ENCOUNTER: Subsequent ACUITY: 1 day PAIN SCORE: 5/10 LOCATION: Abdomen. TECHNIQUE: Multiplanar, multisequence magnetic resonance imaging of the abdomen was performed. High-resolution 3D dataset was utilized to reconstruct maximum-intensity projection (MIP) images. FINDINGS: There does appear to be a small stone in distal common duct measuring about 3 mm in diameter. The com mon bile duct is dilated to approximately 13 mm. No gallstones identified within the gallbladder. The re is mild gallbladder wall thickening and mild pericholecystic fluid. There is also some anasarca an d fluid in the soft tissues. Bilateral pleural effusions also present with basilar lung consolidation . No acute findings in the visualized liver, spleen, adrenals, kidneys or pancreas. CONCLUSION: 1. Probable small 3 mm stone in distal common duct. Common bile duct is dilated to 13 mm. There is al so gallbladder wall thickening and some mild pericholecystic fluid. 2. Mild anasarca. 3. Small bilateral pleural effusions and basilar lung consolidation. Juan Dubon MD on October 29, 2017 at 18:45 Board Certified Radiologist. This report was verified electronically.
[2017-10-29] MEDS: LANSOPRAZOLE SOLUTAB 30 MG TAB PO SCH (20:24)
[2017-10-29] MEDS: PRAVASTATIN SOD 40 MG TAB PO SCH (20:24)
[2017-10-29] MEDS: EZETIMIBE 10 MG TAB PO SCH (20:25)
[2017-10-30] VITALS (11 sets, daily range): BP systolic 108–154; BP diastolic 59–73; PULSE 57–84; RESP 18; TEMP 96.4–99.2; O2SAT 96–98
[2017-10-30] MEDS: cloNIDine HCL 0.1 MG TAB PO PRN (00:35)
[2017-10-30] MEDS: SUCRALFATE 1 GM TAB PO SCH ×4 (08:00→20:20)
[2017-10-30] MEDS: CARVEDILOL 6.25 MG TAB PO SCH ×3 (08:30→18:51)
[2017-10-30] MEDS: SODIUM CHLORIDE 0.9% FLUSH 10 ML FLUSH IV FLUSH SCH ×2 (08:31→20:20)
[2017-10-30] MEDS: ACETAMINOPHEN 325 MG TAB PO PRN ×2 (08:31→20:20)
[2017-10-30 08:35] LABS: HEMATOCRIT 30.1 % (39.0-51.0); MEAN CELL VOLUME 90.1 FL (80.0-100.0); MEAN CORPUSCULAR HEMOGLOBIN 31.3 PG (27.0-34.0); MEAN CORPUSCULAR HGB CONC 34.7 % (32.0-36.0); PLATELET COUNT 195 TH/MM3 (150-450); RED BLOOD COUNT 3.34 MIL/MM3 (4.50-5.90); RED CELL DISTRIBUTION WIDTH 13.4 % (11.6-17.2); WHITE BLOOD COUNT 7.6 TH/MM3 (4.0-11.0)
--- NOTE | 2017-10-30 08:36 | HHI.PR ---
Subjective Remarks OOB sitting in chair. Reports one loose stool yesterday. Denies any nausea or vomiting. Objective Vital Signs Date Time Temp Pulse Resp B/P (MAP) Pulse Ox O2 Delivery O2 Flow Rate FiO2 10/30/17 07:31 Room Air 10/30/17 04:16 96.9 70 18 135/65 (88) 96 10/30/17 04:05 68 10/30/17 00:05 75 10/29/17 23:20 96.7 81 18 183/87 (119) 97 10/29/17 20:25 96.7 86 18 188/87 (120) 95 10/29/17 20:24 95 Nasal Cannula 2.00 10/29/17 20:24 80 10/29/17 18:15 97.6 77 18 192/91 (124) 99 10/29/17 16:13 67 10/29/17 14:30 65 10/29/17 12:00 96.0 64 18 109/64 (79) 91 I/O 10/29/17 10/29/17 10/29/17 10/30/17 10/30/17 10/30/17 07:00 15:00 23:00 07:00 15:00 23:00 Intake Total 240 ml 383 ml 360 ml 480 ml Balance 240 ml 383 ml 360 ml 480 ml Intake Oral 240 ml 240 ml 360 ml 480 ml IV Total 143 ml # Voids 1 3 2 1 # Bowel Movements 0 1 0 0 Result Diagram: 10/29/17 0600 10/26/17 0650 Procedures Current Medications Medications (Trade) Dose Ordered Sig/Jerilyn Route Start Time Stop Time Status Last Admin (NS Flush) 2 ml UNSCH PRN IV FLUSH 10/24/17 00:15 10/29/17 12:01 (NS Flush) 2 ml BID IV FLUSH 10/24/17 09:00 10/29/17 09:52 (Narcan Inj) 0.4 mg UNSCH PRN IV PUSH 10/24/17 00:15 (Coreg) 6.25 mg TID PO 10/24/17 09:00 10/29/17 09:51 (Zetia) 10 mg HS PO 10/24/17 21:00 10/28/17 23:04 (Pravachol) 40 mg HS PO 10/24/17 21:00 10/28/17 23:04 (Catapres) 0.1 mg Q6H PRN PO 10/24/17 11:45 10/28/17 23:15 (Tylenol) 650 mg Q4H PRN PO 10/24/17 13:15 10/27/17 23:12 (Prevacid Odt) 30 mg HS@2000 PO 10/25/17 20:00 10/28/17 23:04 (Levsin) 0.125 mg Q6H PRN SL 10/25/17 19:45 (Mylicon Chew) 80 mg Q4H PRN PO 10/25/17 20:15 10/26/17 18:05 ([place] 5-325 Mg) 1 tab Q4H PRN PO 10/26/17 07:00 10/29/17 09:51 (Carafate) 1 gm ACHS PO 10/27/17 17:00 10/29/17 12:00 Objective Remarks GENERAL: alert and cooperative SKIN: Warm and dry. HEAD: Normocephalic. EYES: No scleral icterus. No injection or drainage. NECK: Supple, trachea midline. No JVD or lymphadenopathy. CARDIOVASCULAR: Regular rate and rhythm without murmurs, gallops, or rubs. RESPIRATORY: Breath sounds equal bilaterally. No accessory muscle use. GASTROINTESTINAL: Abdomen soft, non-tender, nondistended. MUSCULOSKELETAL: No cyanosis, or edema. Tenderness palpated in mid back region BACK: Nontender without obvious deformity. No CVA tenderness. Medications and IVs Current Medications Medications (Trade) Dose Ordered Sig/Jerilyn Route Start Time Stop Time Status Last Admin (NS Flush) 2 ml UNSCH PRN IV FLUSH 10/24/17 00:15 10/29/17 12:01 (NS Flush) 2 ml BID IV FLUSH 10/24/17 09:00 10/29/17 20:25 (Narcan Inj) 0.4 mg UNSCH PRN IV PUSH 10/24/17 00:15 (Coreg) 6.25 mg TID PO 10/24/17 09:00 10/29/17 18:41 (Zetia) 10 mg HS PO 10/24/17 21:00 10/29/17 20:25 (Pravachol) 40 mg HS PO 10/24/17 21:00 10/29/17 20:24 (Catapres) 0.1 mg Q6H PRN PO 10/24/17 11:45 10/30/17 00:35 (Tylenol) 650 mg Q4H PRN PO 10/24/17 13:15 10/27/17 23:12 (Prevacid Odt) 30 mg HS@2000 PO 10/25/17 20:00 10/29/17 20:24 (Levsin) 0.125 mg Q6H PRN SL 10/25/17 19:45 (Mylicon Chew) 80 mg Q4H PRN PO 10/25/17 20:15 10/26/17 18:05 ([place] 5-325 Mg) 1 tab Q4H PRN PO 10/26/17 07:00 10/29/17 09:51 (Carafate) 1 gm ACHS PO 10/27/17 17:00 10/29/17 20:24 Assessment and Plan Problem List: (1) Hematochezia ICD Codes: K92.1 - Melena Status: Acute (2) Abdominal pain ICD Codes: R10.9 - Unspecified abdominal pain Assessment and Plan 10/24/17 Hematochezia: GI consulted. Clear liquid diet and sandostatin drip. Frequent bloody stools. Hemoglobin is stable at 15.7. Colonscopy done 1 week ago with over 10 polyps removed. Has had abdominal discomfort since that point was started on ciprofloxacin outpatient. HTN; continue home medications well controlled on coreg HLD: continue home medications Labs in am 10/25/07 Hematochezia: GI consulted. Bleeding scan ordered and negative scan for bleeding. Continued on Clear liquid diet and sandostatin drip. Bloody stools improved. Hemoglobin is stable dropped to 9.6 today will transfuse as needed. Per GI note may be related to polypectomies. HTN; elevated yesterday. amlodipine added and prn clonidine s/p fall: fall reported per nursing. Neuro checks every 4 hours. Will order PT and OT. Right shoulder and back discomfort reported that was relieved with tylenol 10/26/17 Hematochezia: Sandostatin drip stopped and diet advanced. HGB decreased to 8.3 from 9.6 yesterday. Blood pressure is stable. Recheck in AM. Prevacid and simethicone started. S/P Fall: complaining of back discomfort in mid back region will obtain rib xray. [place] added for pain . Will need to monitor carefully as patient is sensitive to pain medication. PT and OT started. 10/30/17 Hematochezia: None today. Sandostatin drip stopped. On full liquid diet. Denies any nausea or vomiting. A colonic ulcer was noted in the cecum-prob related to polypectomies. Other source of bleeding may be diverticulosis per GI note Abdominal discomfort: Non tender on palpation this morning. Elevated LFT and lipase. Pending today. Abnormal CT scan--dilated GB with thickened wall and dilated CBD. Surgery consulted per note gallbladder may be distended from being n.p.o. on and off for the last two weeks and being ill. MRCP- Probable small 3 mm stone in distal common duct. Common bile duct is dilated to 13 mm. There is also gallbladder wall thickening and some mild pericholecystic fluid. I and the PRODUCTION ASSEMBLY SUPERVISOR have both examined this patient and reviewed this note and I agree with these findings and plan of care. Maribeth Manriquez. PRODUCTION ASSEMBLY SUPERVISOR Oct 30, 2017 08:36
[2017-10-30 08:37] LABS: HEMO FLAGS AUTO DIFF
[2017-10-30 09:07] LABS: INDIRECT BILIRUBIN 0.3 MG/DL (0.0-0.8); TOTAL BILIRUBIN ADULT 0.6 MG/DL (0.2-1.0)
[2017-10-30 09:11] LABS: BANDS 18 % (0-6); BASOPHILS 1 % (0-2); MYELOCYTES 1 % (0-0); NEUTROPHIL # MANUAL DIFF 6.2 TH/MM3 (1.8-7.7); POLYS (SEG NEUTROPHILS) 62 % (16-70); WBC DIFF SAMPLE 100
[2017-10-30 09:12] LABS: PLATELET ESTIMATE SMEAR NORMAL (NORMAL); PLATELET MORPHOLOGY NORMAL (NORMAL); SCAN/DIFF FINAL DIFF MANUAL
--- NOTE | 2017-10-30 10:07 | HHI.GIFU ---
GI Follow-up Note Consult Follow-up Subjective: Patient feeling better. abd pain much better. some loose stools-- non-bloody Objective: PHYSICAL EXAMINATION: Vitals signs stable No fever HEENT: no jaundice. NECK: No lymphadenopathy. CHEST: Chest is clear to auscultation and percussion. CARDIAC: Regular rate and rhythm with no murmur gallop or rubs. ABDOMEN: Soft, nondistended, nontender; no hepatosplenomegaly; bowel sounds are present in all four quadrants. EXTREMITIES: No edema. SKIN:no rash; no jaundice. SENIOR WEB APPLICATIONS DEVELOPER: alert and oriented times three. Available Data (labs, X- Rays, Procedues) : MRCP -CBD stone. LFT's worse. Hgb 10.4-better ASSESSMENT/PLAN: 1. Lower GI bleeding/hematochezia -none today. A colonic ulcer was noted in the cecum-prob related to polypectomies. Other source of bleeding may be diverticulosis. Unfortunately prep was not the best and the other polypectomy sites and an AVM's could not be seen. Old blood was noted in the distal transverse colon/descending colon area 2. History of colon polyps, multiple 3. Colonic diverticulosis scattered throughout. 4. Right lower quadrant pain-returns 5. recent fall 6. Upper abd pain/GERD-better 7. Elevated LFT and lipase 8. Cecal ulcer 9. Abnormal CT scan--dilated GB with thickened wall and dilated CBD 10. CBD stone on MRCP 11. Loose stools RECOMMENDATIONS 1. ERCP-all indications, risks, alternatives, benefits, limitations, complications were d/w pt/ including bleeding, infection, perforation. pancreatitis, cholangitis and .they agree. Dr. Ibrahim will do tomorrow 2. Stool for C. diff 3. Stop Octreotide --bleeding has stopped and it is a "negative Gut hormone" and it can slow down the biliary tree 4. Full liquid diet 5. Carafate added-sometimes helps colonic ulcers It was a pleasure seeing Thierry Bales. Thank you for this consult. Entered by: Sg Mario MD Oct 30, 2017 10:07
--- NOTE | 2017-10-30 12:31 | HHI.PR ---
cc: Juan Talley MD Subjective Subjective Notes PROGRESS NOTE FOR SURGICAL ATTENDING, DR. JUAN TALLEY Resting in bed at bedside Objective Vitals/I&O Vital Signs Date Time Temp Pulse Resp B/P (MAP) Pulse Ox O2 Delivery O2 Flow Rate FiO2 10/30/17 08:34 75 10/30/17 08:00 99.2 18 154/67 (96) 98 10/30/17 07:31 Room Air 10/29/17 20:24 2.00 Labs Laboratory Tests Test 10/30/17 07:10 White Blood Count 7.6 Red Blood Count 3.34 Hemoglobin 10.4 Hematocrit 30.1 Mean Corpuscular Volume 90.1 Mean Corpuscular Hemoglobin 31.3 Mean Corpuscular Hemoglobin Concent 34.7 Red Cell Distribution Width 13.4 Platelet Count 195 Mean Platelet Volume 9.2 CBC Comment AUTO DIFF Differential Total Cells Counted 100 Neutrophils % (Manual) 62 Band Neutrophils % 18 Lymphocytes % 9 Monocytes % 9 Basophils % 1 Neutrophils # (Manual) 6.2 Myelocytes 1 Differential Comment FINAL DIFF MANUAL Platelet Estimate NORMAL Platelet Morphology Comment NORMAL Red Cell Morphology Comment NORMAL Total Bilirubin 0.6 Direct Bilirubin 0.3 Indirect Bilirubin 0.3 Aspartate Amino Transf (AST/SGOT) 97 Alanine Aminotransferase (ALT/SGPT) 96 Alkaline Phosphatase 382 Total Protein 5.7 Albumin 2.4 Amylase Level 47 Lipase 277 Carcinoembryonic Antigen 0.9 Radiology Last Impressions Cholangiopancreatography MRI 10/29/17 0000 Signed Impressions: Service Date/Time: Sunday, October 29, 2017 17:25 - CONCLUSION: 1. Probable small 3 mm stone in distal common duct. Common bile duct is dilated to 13 mm. There is also gallbladder wall thickening and some mild pericholecystic fluid. 2. Mild anasarca. 3. Small bilateral pleural effusions and basilar lung consolidation. Juan Dubon MD Abdomen/Pelvis CT 10/28/17 0000 Signed Impressions: Service Date/Time: Saturday, October 28, 2017 21:53 - CONCLUSION: 1. Distended gallbladder with thickening of the gallbladder wall. Skin be correlated with any clinical signs of cholecystitis. The common bile duct is dilated at 1.2 cm. Calcified gallstones are not seen. 2. Mild bilateral pleural effusions. There is some consolidation or atelectasis at the right lung base. 3. Scattered colonic diverticula. León Reina MD Ribs X-Ray 10/26/17 0000 Signed Impressions: Service Date/Time: Thursday, October 26, 2017 09:57 - CONCLUSION: 1. There is no evidence of acute fracture. Terry Redd MD GI Bleed Scan Nuclear Medicine 10/24/17 0000 Signed Impressions: Service Date/Time: Tuesday, October 24, 2017 14:32 - CONCLUSION: 1. Negative gastrointestinal bleeding scan Terry Redd MD Cardiovascular: Regular Lungs: Clear Abdomen: Non-distended, Other (minimal RUQ abdominal pain ) Extremities: No edema A/P Problem List: (1) Choledocholithiasis ICD Codes: K80.50 - Calculus of bile duct without cholangitis or cholecystitis without obstruction Status: Acute Plan: patient has ERCP planned tomorrow afternoon (2) GI bleed ICD Codes: K92.2 - Gastrointestinal hemorrhage, unspecified Status: Chronic (3) Abdominal pain ICD Codes: R10.9 - Unspecified abdominal pain Status: Chronic Assessment and Plan 77 year old male s/p numerous polypectomies that resulted in a LGIB (now resolved); CT abd/pelvis shows gallbladder with a dilated common bile duct if MRCP shows distal common duct stones -GI planning on ERCP tomorrow -Will discuss timing of cholecystectomy based on findings on ERCP and clinical progression I told the patient he may benefit from just recovering from all the interventions that he has had get discharged from the hospital and follow up in my office for elective cholecystectomy depending on how the ERCP goes tomorrow Attending Statement PROGRESS NOTE FOR SURGICAL ATTENDING, DR. JUAN TALLEY I spoke with the patient and his at the bedside still having some mild abdominal discomfort he scheduled for an ERCP tomorrow I agree with above assessment and plan. The exam, history, and the medical decision-making described in the above note were completed with the assistance of the mid-level provider. I reviewed and agree with the findings presented. I attest that I had a [id number] encounter with the patient on the same day, and personally performed and documented my assessment and findings in the medical record. The following services were provided during this hospital visit: Chart data review, vital sign assessments/reviewing monitor data Review of consultations notes if present. Medication orders/review and/or management Ordering and/or reviewing lab tests Ordering and/or interpreting/reviewing x-rays and/or diagnostic studies Care of the patient and discussion of the patient with the care team Documentation time To help prompt me to consider important information that might be impacting today's encounter and assessment, information from prior notes written by myself or my colleagues may have been "brought forward/copy and pasted" into today's note. Ce Ford Oct 30, 2017 12:31 Juan Talley MD Oct 30, 2017 16:39
[2017-10-30 14:38] LABS: BICARBONATE 29.4 MEQ/L (21.0-32.0); POTASSIUM 3.1 MEQ/L (3.5-5.1)
[2017-10-30 14:57] LABS: C. DIFF EPI 027 PRESUMPTIVE NEGATIVE (NEGATIVE)
[2017-10-30] MEDS ORDERED: POTASSIUM CHLORIDE 10 MEQ CONTROLLED RELEASE TAB PO ONE (18:30)
[2017-10-30] MEDS: PRAVASTATIN SOD 40 MG TAB PO SCH (20:20)
[2017-10-30] MEDS: LANSOPRAZOLE SOLUTAB 30 MG TAB PO SCH (20:20)
[2017-10-30] MEDS: EZETIMIBE 10 MG TAB PO SCH (20:20)
[2017-10-30] MEDS ORDERED: SODIUM CHLORID 0.9% 500 ML IV PRN (23:45)
[2017-10-30] MEDS ORDERED: LACTATED RINGER'S 1000 ML IV PRN (23:45)
[2017-10-30] MEDS ORDERED: CHLORHEXIDINE GLUCONATE 2 % 1 PACK (2 CLOTHS) TOPICAL PRN (23:45)
[2017-10-30] MEDS ORDERED: POVIDONE IODINE 5% (ANTISEPSIS KIT) 4 APPLICATIONS EACH NARE PRN (23:45)
[2017-10-31] VITALS (8 sets, daily range): BP systolic 147–187; BP diastolic 66–85; PULSE 63–81; RESP 18; TEMP 95.6–97.5; O2SAT 93–98
[2017-10-31] MEDS: SUCRALFATE 1 GM TAB PO SCH ×4 (08:00→20:01)
--- NOTE | 2017-10-31 08:28 | HHI.PR ---
Subjective Remarks Patient resting in bed this morning. Plan for ERCP today Objective Vital Signs Date Time Temp Pulse Resp B/P (MAP) Pulse Ox O2 Delivery O2 Flow Rate FiO2 10/31/17 04:00 63 10/31/17 03:45 96.9 63 18 147/66 (93) 96 10/30/17 23:49 62 10/30/17 23:27 96.9 79 18 138/63 (88) 97 10/30/17 20:17 73 10/30/17 20:17 97 Nasal Cannula 2.00 10/30/17 19:45 96.7 72 18 123/61 (81) 97 10/30/17 17:51 96.4 62 18 138/73 (94) 98 10/30/17 12:00 96.5 57 18 108/59 (75) 96 10/30/17 08:34 75 I/O 10/30/17 10/30/17 10/30/17 10/31/17 10/31/17 10/31/17 07:00 15:00 23:00 07:00 15:00 23:00 Intake Total 1080 ml 480 ml 0 ml Output Total 3 ml 450 ml Balance 1077 ml 480 ml -450 ml Intake Oral 1080 ml 480 ml 0 ml Output Urine Total 3 ml 450 ml # Voids 1 1 1 # Bowel Movements 0 0 0 Result Diagram: 10/30/17 0710 10/30/17 0710 Procedures Current Medications Medications (Trade) Dose Ordered Sig/Jerilyn Route Start Time Stop Time Status Last Admin (NS Flush) 2 ml UNSCH PRN IV FLUSH 10/24/17 00:15 10/29/17 12:01 (NS Flush) 2 ml BID IV FLUSH 10/24/17 09:00 10/29/17 09:52 (Narcan Inj) 0.4 mg UNSCH PRN IV PUSH 10/24/17 00:15 (Coreg) 6.25 mg TID PO 10/24/17 09:00 10/29/17 09:51 (Zetia) 10 mg HS PO 10/24/17 21:00 10/28/17 23:04 (Pravachol) 40 mg HS PO 10/24/17 21:00 10/28/17 23:04 (Catapres) 0.1 mg Q6H PRN PO 10/24/17 11:45 10/28/17 23:15 (Tylenol) 650 mg Q4H PRN PO 10/24/17 13:15 10/27/17 23:12 (Prevacid Odt) 30 mg HS@2000 PO 10/25/17 20:00 10/28/17 23:04 (Levsin) 0.125 mg Q6H PRN SL 10/25/17 19:45 (Mylicon Chew) 80 mg Q4H PRN PO 10/25/17 20:15 10/26/17 18:05 ([place] 5-325 Mg) 1 tab Q4H PRN PO 10/26/17 07:00 10/29/17 09:51 (Carafate) 1 gm ACHS PO 10/27/17 17:00 10/29/17 12:00 Objective Remarks GENERAL: alert and cooperative SKIN: Warm and dry. HEAD: Normocephalic. EYES: No scleral icterus. No injection or drainage. NECK: Supple, trachea midline. No JVD or lymphadenopathy. CARDIOVASCULAR: Regular rate and rhythm without murmurs, gallops, or rubs. RESPIRATORY: Breath sounds equal bilaterally. No accessory muscle use. GASTROINTESTINAL: Abdomen soft, non-tender, nondistended. MUSCULOSKELETAL: No cyanosis, or edema. Tenderness palpated in mid back region BACK: Nontender without obvious deformity. No CVA tenderness. Medications and IVs Current Medications Medications (Trade) Dose Ordered Sig/Jerilyn Route Start Time Stop Time Status Last Admin (NS Flush) 2 ml UNSCH PRN IV FLUSH 10/24/17 00:15 10/29/17 12:01 (NS Flush) 2 ml BID IV FLUSH 10/24/17 09:00 10/30/17 20:20 (Narcan Inj) 0.4 mg UNSCH PRN IV PUSH 10/24/17 00:15 (Coreg) 6.25 mg TID PO 10/24/17 09:00 10/30/17 18:51 (Zetia) 10 mg HS PO 10/24/17 21:00 10/30/17 20:20 (Pravachol) 40 mg HS PO 10/24/17 21:00 10/30/17 20:20 (Catapres) 0.1 mg Q6H PRN PO 10/24/17 11:45 10/30/17 00:35 (Tylenol) 650 mg Q4H PRN PO 10/24/17 13:15 10/30/17 20:20 (Prevacid Odt) 30 mg HS@2000 PO 10/25/17 20:00 10/30/17 20:20 (Levsin) 0.125 mg Q6H PRN SL 10/25/17 19:45 (Mylicon Chew) 80 mg Q4H PRN PO 10/25/17 20:15 10/26/17 18:05 ([place] 5-325 Mg) 1 tab Q4H PRN PO 10/26/17 07:00 10/29/17 09:51 (Carafate) 1 gm ACHS PO 10/27/17 17:00 10/30/17 20:20 Lactated Ringer's 1,000 ml @ 30 mls/hr Q24H PRN IV 10/30/17 23:45 11/02/17 23:44 Sodium Chloride 500 ml @ 30 mls/hr [id number] PRN IV 10/30/17 23:45 11/02/17 23:44 (Betadine 5% Antisepsis Kit) 1 applic BLADE FILER PRN EACH NARE 10/30/17 23:45 11/02/17 23:44 (Chlorhexidine 2% Cloth) 3 pack BLADE FILER PRN TOPICAL 10/30/17 23:45 11/02/17 23:44 Potassium Chloride/Dextrose/ Sod Cl 1,000 ml @ 84 mls/hr [id number] IV 10/31/17 08:00 UNV Assessment and Plan Problem List: (1) Hematochezia ICD Codes: K92.1 - Melena Status: Acute (2) Abdominal pain ICD Codes: R10.9 - Unspecified abdominal pain Status: Chronic Assessment and Plan 10/24/17 Hematochezia: GI consulted. Clear liquid diet and sandostatin drip. Frequent bloody stools. Hemoglobin is stable at 15.7. Colonscopy done 1 week ago with over 10 polyps removed. Has had abdominal discomfort since that point was started on ciprofloxacin outpatient. HTN; continue home medications well controlled on coreg HLD: continue home medications Labs in am 10/25/07 Hematochezia: GI consulted. Bleeding scan ordered and negative scan for bleeding. Continued on Clear liquid diet and sandostatin drip. Bloody stools improved. Hemoglobin is stable dropped to 9.6 today will transfuse as needed. Per GI note may be related to polypectomies. HTN; elevated yesterday. amlodipine added and prn clonidine s/p fall: fall reported per nursing. Neuro checks every 4 hours. Will order PT and OT. Right shoulder and back discomfort reported that was relieved with tylenol 10/26/17 Hematochezia: Sandostatin drip stopped and diet advanced. HGB decreased to 8.3 from 9.6 yesterday. Blood pressure is stable. Recheck in AM. Prevacid and simethicone started. S/P Fall: complaining of back discomfort in mid back region will obtain rib xray. [place] added for pain . Will need to monitor carefully as patient is sensitive to pain medication. PT and OT started. 10/30/17 Hematochezia: None today. Sandostatin drip stopped. On full liquid diet. Denies any nausea or vomiting. A colonic ulcer was noted in the cecum-prob related to polypectomies. Other source of bleeding may be diverticulosis per GI note Abdominal discomfort: Non tender on palpation this morning. Elevated LFT and lipase. Pending today. Abnormal CT scan--dilated GB with thickened wall and dilated CBD. Surgery consulted per note gallbladder may be distended from being n.p.o. on and off for the last two weeks and being ill. MRCP- Probable small 3 mm stone in distal common duct. Common bile duct is dilated to 13 mm. There is also gallbladder wall thickening and some mild pericholecystic fluid. 10/31/17 Abdominal discomfort: ERCP planned for today. Patient is NPO. IVF's ordered. Anemia; HGB stable will recheck in AM Hypokalemia: k yesterday 3.1. replacement given recheck in AM I and the CLINICAL ACCOUNT SPECIALIST have both examined this patient and reviewed this note and I agree with these findings and plan of care. Noe Howard DO/ Maribeth Betancur [facility] Oct 31, 2017 08:28
[2017-10-31] MEDS: CARVEDILOL 6.25 MG TAB PO SCH ×3 (09:08→18:00)
[2017-10-31] MEDS: D5-NS + KCL 20 MEQ INJ 1,000 ML IV SCH (09:09)
[2017-10-31] MEDS: SODIUM CHLORIDE 0.9% FLUSH 10 ML FLUSH IV FLUSH SCH ×2 (09:09→20:02)
[2017-10-31 11:50] LABS: BICARBONATE 28.9 MEQ/L (21.0-32.0); POTASSIUM 3.3 MEQ/L (3.5-5.1)
--- NOTE | 2017-10-31 15:01 | EKG ---
Date Performed: 10/31/2017 Time Performed: 07:15:50 PTAGE: 77 years EKG: Sinus rhythm WITH OCCASIONAL VENTRICULAR PREMATURE COMPLEXES POSSIBLE LEFT ATRIAL ENLARGEMENT BORDERLINE LEFT AXI S DEVIATION INTRAVENTRICULAR CONDUCTION DELAY ABNORMAL ECG PREVIOUS TRACING : 04/02/2015 14.22 DOCTOR: Damian Martinez Interpretating Date/Time 10/31/2017 14:59:20
--- NOTE | 2017-10-31 18:28 | GIPROC ---
[facility] [address] [facility]. [facility], [address] ERCP PROCEDURE REPORT EXAM DATE: 10/31/2017 PATIENT NAME: Thierry Bales MR #: [id number] BIRTHDATE: 1940 ATTENDING: Thiago Ibrahim MD ORDER #: [id number] GREEN COFFEE BLENDER: Vivi Mensah and Deb Kendall STATUS: inpatient INDICATIONS: The patient is a 77 yr old male here for an ERCP due to therapy of bile duct stone(s) PROCEDURE PERFORMED: ERCP with sphincterotomy/papillotomy ERCP with removal of calculus/calculi MEDICATIONS: None and Per Anesthesia. CONSENT: The patient understands the risks and benefits of the procedure and understands that these risks include, but are not limited to: sedation, allergic reaction, infection, perforation and/or bleeding. Alternative means of evaluation and treatment include, among others: physical exam, x-rays, and/or surgical intervention. The patient elects to proceed with this endoscopic procedure. medical equipment was checked for proper function. Hand hygiene and appropriate measures for infection prevention was taken. After the risks, benefits and alternatives of the procedure were thoroughly explained, Informed was verified, confirmed and timeout was successfully executed by the treatment team. With the patient in left semi-prone position, medications were administered intravenously.The Pentax [id number] was passed from the mouth into the esophagus and further advanced from the esophagus into the stomach. From stomach scope was directed to the second portion of the duodenum. Major papilla was aligned with the duodenoscope. The scope position was confirmed fluoroscopically. Rest of the findings/therapeutics are given below. The scope was then completely withdrawn from the patient and the procedure completed. The pulse, BP, and O2 saturation were monitored and documented by the physician and the nursing staff throughout the entire procedure. The patient was cared for as planned according to standard protocol. The patient was then discharged to recovery in stable condition and with appropriate post procedure care. The ampulla was located the second portion of the duodenum. The ampulla appeared normal. There was a dilation of the CBD up to 12mm. Two possible filling defects were seen. Bile duct cannulation was attempted using the sphinctertome with guidewire. Cannulation of the bile duct was performed with ease. Deep cannulation with the sphincterotome was successfully achieved. Contrast was injected into the bile duct and a cholangiogram obtained. With guidewire in the bile duct, a biliary sphincterotomy was performed using the sphincterotome. Using a stone extraction balloon the bile duct was swept several times. Multiple stone fragments were removed from the bile duct successfully, and sludge was removed.. A balloon occlusion cholangiogram was performed. No filling defects were noted. Cystic duct was patent. Gallbladder filed with contrast. ADVERSE EVENT: There were no complications. IMPRESSIONS: 1. Normal appearing ampulla 2. Dilated common bile duct 3. S/p sphincterotomy and extract. RECOMMENDATIONS: 1. Return to hospital floor. 2. Resume diet as tolerated 3. Monitor LFTs as needed 4. Can consider outpt [place] REPEAT EXAM: NONE Thiago Ibrahim MD eSigned: Thiago Ibrahim MD 10/31/2017 6:27 PM cc:
--- NOTE | 2017-10-31 18:53 | RADRPT ---
EXAM DATE/TIME: 10/31/2017 17:47 [place] COMPARISON: No previous studies available for comparison. INDICATIONS : Evaluation for stone in common bile duct. FLUORO TIME: 2 mins 16 secs IMAGE COUNT: 6 CONTRAST: Instilled by Ordering Physician MEDICAL HISTORY : None. SURGICAL HISTORY : None. ENCOUNTER: Initial ACUITY: 1 day PAIN SCORE: Non-responsive. LOCATION: ERCP FINDINGS: An ERCP was performed by the ordering physician. The images demonstrate cannulation of common bile duct and injection of contrast. No definite filling defects identified. CONCLUSION: ERCP as above. Juan Dubon MD on October 31, 2017 at 18:50 Board Certified Radiologist. This report was verified electronically.
[2017-10-31] MEDS ORDERED: IOHEXOL 350 MG/ML 50 ML BTL (for RAD DIAG) OTHER ONE (19:37)
[2017-10-31] MEDS ORDERED: DO NOT ADM ANY ANTICOAGULANT DRUGS PRN (19:45)
[2017-10-31] MEDS: SIMETHICONE 80 MG CHEWABLE TAB PO PRN (20:01)
[2017-10-31] MEDS: EZETIMIBE 10 MG TAB PO SCH (20:01)
[2017-10-31] MEDS: PRAVASTATIN SOD 40 MG TAB PO SCH (20:01)
[2017-10-31] MEDS: LANSOPRAZOLE SOLUTAB 30 MG TAB PO SCH (20:01)
[2017-10-31] MEDS: cloNIDine HCL 0.1 MG TAB PO PRN (20:01)
[2017-10-31] MEDS: ACETAMINOPHEN/HYDROcodone 325 MG/5 MG TAB PO PRN (21:45)
[2017-10-31] MEDS: ACETAMINOPHEN 325 MG TAB PO PRN (22:40)
[2017-11-01] VITALS (8 sets, daily range): BP systolic 115–143; BP diastolic 56–76; PULSE 73–88; RESP 17–18; TEMP 96.6–99.1; O2SAT 93–98
[2017-11-01] MEDS: D5-NS + KCL 20 MEQ INJ 1,000 ML IV SCH (00:13)
[2017-11-01 08:07] LABS: HEMATOCRIT 30.4 % (39.0-51.0); MEAN CELL VOLUME 90.4 FL (80.0-100.0); MEAN CORPUSCULAR HEMOGLOBIN 30.2 PG (27.0-34.0); MEAN CORPUSCULAR HGB CONC 33.4 % (32.0-36.0); PLATELET COUNT 248 TH/MM3 (150-450); RED BLOOD COUNT 3.36 MIL/MM3 (4.50-5.90); RED CELL DISTRIBUTION WIDTH 13.7 % (11.6-17.2); REVIEW FLAG FINAL; WHITE BLOOD COUNT 10.5 TH/MM3 (4.0-11.0)
--- NOTE | 2017-11-01 08:22 | HHI.PR ---
Subjective Remarks Patient resting in bed. Reported last night he had abdominal radiating to back pain after ERCP. Has resolved this morning. Objective Vital Signs Date Time Temp Pulse Resp B/P (MAP) Pulse Ox O2 Delivery O2 Flow Rate FiO2 11/01/17 04:10 96.8 73 18 126/70 (88) 97 11/01/17 00:10 97.0 74 18 115/56 (75) 98 10/31/17 21:44 98 21 10/31/17 20:00 95.6 69 18 184/85 (118) 98 10/31/17 19:01 62 16 173/72 (105) 95 Room Air 10/31/17 18:40 67 16 164/79 (107) 94 Room Air 10/31/17 18:25 98.2 72 16 167/79 (108) 95 Room Air 10/31/17 16:00 96.9 81 18 187/84 (118) 96 10/31/17 12:00 97.5 71 18 162/80 (107) 93 10/31/17 09:04 72 I/O 10/31/17 10/31/17 10/31/17 11/01/17 11/01/17 11/01/17 07:00 15:00 23:00 07:00 15:00 23:00 Intake Total 0 ml 780 ml 240 ml Output Total 450 ml 400 ml Balance -450 ml 380 ml 240 ml Intake Oral 0 ml 480 ml 240 ml Other 300 ml Output Urine Total 450 ml 400 ml # Voids 1 1 # Bowel Movements 0 1 1 Result Diagram: 11/01/17 0650 10/31/17 1037 Procedures Current Medications Medications (Trade) Dose Ordered Sig/Jerilyn Route Start Time Stop Time Status Last Admin (NS Flush) 2 ml UNSCH PRN IV FLUSH 10/24/17 00:15 10/29/17 12:01 (NS Flush) 2 ml BID IV FLUSH 10/24/17 09:00 10/29/17 09:52 (Narcan Inj) 0.4 mg UNSCH PRN IV PUSH 10/24/17 00:15 (Coreg) 6.25 mg TID PO 10/24/17 09:00 10/29/17 09:51 (Zetia) 10 mg HS PO 10/24/17 21:00 10/28/17 23:04 (Pravachol) 40 mg HS PO 10/24/17 21:00 10/28/17 23:04 (Catapres) 0.1 mg Q6H PRN PO 10/24/17 11:45 10/28/17 23:15 (Tylenol) 650 mg Q4H PRN PO 10/24/17 13:15 10/27/17 23:12 (Prevacid Odt) 30 mg HS@2000 PO 10/25/17 20:00 10/28/17 23:04 (Levsin) 0.125 mg Q6H PRN SL 10/25/17 19:45 (Mylicon Chew) 80 mg Q4H PRN PO 10/25/17 20:15 10/26/17 18:05 (Katy 5-325 Mg) 1 tab Q4H PRN PO 10/26/17 07:00 10/29/17 09:51 (Carafate) 1 gm ACHS PO 10/27/17 17:00 10/29/17 12:00 Objective Remarks GENERAL: alert and cooperative SKIN: Warm and dry. HEAD: Normocephalic. EYES: No scleral icterus. No injection or drainage. NECK: Supple, trachea midline. No JVD or lymphadenopathy. CARDIOVASCULAR: Regular rate and rhythm without murmurs, gallops, or rubs. RESPIRATORY: Breath sounds equal bilaterally. No accessory muscle use. GASTROINTESTINAL: Abdomen soft, non-tender, nondistended. MUSCULOSKELETAL: No cyanosis, or edema. Tenderness palpated in mid back region BACK: Nontender without obvious deformity. No CVA tenderness. Medications and IVs Current Medications Medications (Trade) Dose Ordered Sig/Jerilyn Route Start Time Stop Time Status Last Admin (NS Flush) 2 ml UNSCH PRN IV FLUSH 10/24/17 00:15 10/29/17 12:01 (NS Flush) 2 ml BID IV FLUSH 10/24/17 09:00 10/31/17 20:02 (Narcan Inj) 0.4 mg UNSCH PRN IV PUSH 10/24/17 00:15 (Coreg) 6.25 mg TID PO 10/24/17 09:00 10/31/17 12:33 (Zetia) 10 mg HS PO 10/24/17 21:00 10/31/17 20:01 (Pravachol) 40 mg HS PO 10/24/17 21:00 10/31/17 20:01 (Catapres) 0.1 mg Q6H PRN PO 10/24/17 11:45 10/31/17 20:01 (Tylenol) 650 mg Q4H PRN PO 10/24/17 13:15 10/31/17 22:40 (Prevacid Odt) 30 mg HS@2000 PO 10/25/17 20:00 10/31/17 20:01 (Levsin) 0.125 mg Q6H PRN SL 10/25/17 19:45 (Mylicon Chew) 80 mg Q4H PRN PO 10/25/17 20:15 10/31/17 20:01 (Katy 5-325 Mg) 1 tab Q4H PRN PO 10/26/17 07:00 10/31/17 21:45 (Carafate) 1 gm ACHS PO 10/27/17 17:00 10/31/17 20:01 (Betadine 5% Antisepsis Kit) 1 applic BUSINESS MACHINES TEACHER PRN EACH NARE 10/30/17 23:45 11/02/17 23:44 (Chlorhexidine 2% Cloth) 3 pack BUSINESS MACHINES TEACHER PRN TOPICAL 10/30/17 23:45 11/02/17 23:44 Potassium Chloride/Dextrose/ Sod Cl 1,000 ml @ 84 mls/hr [id number] IV 10/31/17 08:00 11/01/17 00:13 Miscellaneous Information ALL NURSING DEPARTME... UNSCH PRN .XX 10/31/17 19:45 11/01/17 19:44 Assessment and Plan Problem List: (1) Hematochezia ICD Codes: K92.1 - Melena Status: Acute (2) Abdominal pain ICD Codes: R10.9 - Unspecified abdominal pain Status: Chronic Assessment and Plan 10/24/17 Hematochezia: GI consulted. Clear liquid diet and sandostatin drip. Frequent bloody stools. Hemoglobin is stable at 15.7. Colonscopy done 1 week ago with over 10 polyps removed. Has had abdominal discomfort since that point was started on ciprofloxacin outpatient. HTN; continue home medications well controlled on coreg HLD: continue home medications Labs in am 10/25/07 Hematochezia: GI consulted. Bleeding scan ordered and negative scan for bleeding. Continued on Clear liquid diet and sandostatin drip. Bloody stools improved. Hemoglobin is stable dropped to 9.6 today will transfuse as needed. Per GI note may be related to polypectomies. HTN; elevated yesterday. amlodipine added and prn clonidine s/p fall: fall reported per nursing. Neuro checks every 4 hours. Will order PT and OT. Right shoulder and back discomfort reported that was relieved with tylenol 10/26/17 Hematochezia: Sandostatin drip stopped and diet advanced. HGB decreased to 8.3 from 9.6 yesterday. Blood pressure is stable. Recheck in AM. Prevacid and simethicone started. S/P Fall: complaining of back discomfort in mid back region will obtain rib xray. [place] added for pain . Will need to monitor carefully as patient is sensitive to pain medication. PT and OT started. 10/30/17 Hematochezia: None today. Sandostatin drip stopped. On full liquid diet. Denies any nausea or vomiting. A colonic ulcer was noted in the cecum-prob related to polypectomies. Other source of bleeding may be diverticulosis per GI note Abdominal discomfort: Non tender on palpation this morning. Elevated LFT and lipase. Pending today. Abnormal CT scan--dilated GB with thickened wall and dilated CBD. Surgery consulted per note gallbladder may be distended from being n.p.o. on and off for the last two weeks and being ill. MRCP- Probable small 3 mm stone in distal common duct. Common bile duct is dilated to 13 mm. There is also gallbladder wall thickening and some mild pericholecystic fluid. 10/31/17 Abdominal discomfort: ERCP planned for today. Patient is NPO. IVF's ordered. Anemia; HGB stable will recheck in AM Hypokalemia: k yesterday 3.1. replacement given recheck in AM 11/01/17 Abdominal discomfort: None reported this morning. ERCP yesterday. Will resume full liquid diet. IVF discontinued. Reported increased pain after ERCP yesterday but has resolved since then. Anemia: Remains stable will add iron replacement. Hypokalemia: Results pending this morning I and the ROOFER VINYL COATING have both examined this patient and reviewed this note and I agree with these findings and plan of care. Noe Howard DO/ Maribeth Betancur [facility] Nov 01, 2017 08:22
[2017-11-01 08:45] LABS: BICARBONATE 27.6 MEQ/L (21.0-32.0); POTASSIUM 3.3 MEQ/L (3.5-5.1)
--- NOTE | 2017-11-01 09:06 | HHI.GIFU ---
GI Follow-up Note Consult Follow-up Subjective: Patient c/o mid back pain all last night for which he states he received oral pain meds. When he awoke this am the pain was gone. No nausea. Had a large nonbloody BM last PM. H&H stable. Objective: PHYSICAL EXAMINATION: Vitals signs stable No fever CHEST: Chest reveals mild decrease BS bilat with a few inspriratory crackles at bases CARDIAC: Regular rate and rhythm with no murmur gallop or rubs. ABDOMEN: Soft, nondistended, nontender EXTREMITIES: No clubbing, cyanosis, or edema. SKIN: Normal; no rash; no jaundice. EQUIPMENT RECORDS SUPERVISOR: No focal deficits; alert and oriented times three. Available Data (labs, X- Rays, Procedues) : ASSESSMENT/PLAN: 1. Choledocholithiasis-s/p sphincterotomy and balloon clearance. ?mild pancreatitis. Will see how he does with full liquids. If no further pain can advance diet to low fat and discharge. 2. Post-polypectomy bleed-stable. It was a pleasure seeing Thierry Bales. Thank you for this consult. Entered by: Jason Anderson MD Nov 01, 2017 09:06
[2017-11-01] MEDS: SODIUM CHLORIDE 0.9% FLUSH 10 ML FLUSH IV FLUSH SCH ×2 (09:07→20:49)
[2017-11-01] MEDS: CARVEDILOL 6.25 MG TAB PO SCH ×3 (09:07→17:53)
[2017-11-01] MEDS: SUCRALFATE 1 GM TAB PO SCH ×4 (09:07→20:48)
[2017-11-01] MEDS: POTASSIUM CHLORIDE 20 MEQ CONTROLLED RELEASE TAB PO SCH ×2 (12:05→20:47)
[2017-11-01] MEDS: POLYSACCHARIDE IRON COMPLEX 150 MG CAP PO SCH ×2 (12:06→20:48)
--- NOTE | 2017-11-01 20:00 | HHI.PR ---
cc: Chacho Talley MD Subjective Subjective Notes DAILY PROGRESS NOTE FOR SURGICAL ATTENDING, DR. CHACHO TALLEY Patient feeling better after ERCP had an episode of some abdominal discomfort and back pain Wanted to discuss timing of outpatient laparoscopic cholecystectomy Objective Vitals/I&O Vital Signs Date Time Temp Pulse Resp B/P (MAP) Pulse Ox O2 Delivery O2 Flow Rate FiO2 11/01/17 17:43 95 21 11/01/17 16:00 99.0 77 17 129/60 (83) 10/31/17 19:01 Room Air 10/30/17 20:17 2.00 Labs Laboratory Tests Test 11/01/17 06:50 White Blood Count 10.5 Red Blood Count 3.36 Hemoglobin 10.1 Hematocrit 30.4 Mean Corpuscular Volume 90.4 Mean Corpuscular Hemoglobin 30.2 Mean Corpuscular Hemoglobin Concent 33.4 Red Cell Distribution Width 13.7 Platelet Count 248 Mean Platelet Volume 8.7 Blood Urea Nitrogen 5 Creatinine 0.48 Random Glucose 125 Calcium Level 8.1 Sodium Level 141 Potassium Level 3.3 Chloride Level 106 Carbon Dioxide Level 27.6 Anion Gap 7 Estimat Glomerular Filtration Rate 169 Radiology Last Impressions GI Procedure 10/31/17 0000 Signed Impressions: Service Date/Time: Tuesday, October 31, 2017 17:47 - CONCLUSION: ERCP as above. Chacho Dubon MD Cholangiopancreatography MRI 10/29/17 0000 Signed Impressions: Service Date/Time: Sunday, October 29, 2017 17:25 - CONCLUSION: 1. Probable small 3 mm stone in distal common duct. Common bile duct is dilated to 13 mm. There is also gallbladder wall thickening and some mild pericholecystic fluid. 2. Mild anasarca. 3. Small bilateral pleural effusions and basilar lung consolidation. Chacho Dubon MD Abdomen/Pelvis CT 10/28/17 0000 Signed Impressions: Service Date/Time: Saturday, October 28, 2017 21:53 - CONCLUSION: 1. Distended gallbladder with thickening of the gallbladder wall. Skin be correlated with any clinical signs of cholecystitis. The common bile duct is dilated at 1.2 cm. Calcified gallstones are not seen. 2. Mild bilateral pleural effusions. There is some consolidation or atelectasis at the right lung base. 3. Scattered colonic diverticula. León Reina MD Ribs X-Ray 10/26/17 0000 Signed Impressions: Service Date/Time: Thursday, October 26, 2017 09:57 - CONCLUSION: 1. There is no evidence of acute fracture. Terry Redd MD GI Bleed Scan Nuclear Medicine 10/24/17 0000 Signed Impressions: Service Date/Time: Tuesday, October 24, 2017 14:32 - CONCLUSION: 1. Negative gastrointestinal bleeding scan Terry Redd MD Cardiovascular: Regular Abdomen: Other (mild soreness midepigastric) A/P Problem List: (1) S/P ERCP ICD Codes: Z98.890 - Other specified postprocedural states (2) Choledocholithiasis ICD Codes: K80.50 - Calculus of bile duct without cholangitis or cholecystitis without obstruction Status: Acute (3) GI bleed ICD Codes: K92.2 - Gastrointestinal hemorrhage, unspecified Status: Chronic (4) Abdominal pain ICD Codes: R10.9 - Unspecified abdominal pain Status: Chronic Assessment and Plan 77 year old male s/p numerous polypectomies that resulted in a LGIB (now resolved); CT abd/pelvis shows gallbladder with a dilated common bile duct if MRCP shows distal common duct stones ERCP and sphincterotomy was done retrieving a few stones discussed timing of cholecystectomy in the next week or 2 after recovery at home I told the patient he may benefit from just recovering from all the interventions that he has had get discharged from the hospital and follow up in my office for elective cholecystectomy The patient and his agree Attending Statement NOTE FOR SURGICAL ATTENDING, DR. CHACHO TALLEY I attest that I had a [id number] encounter with the patient on the same day, and personally performed and documented my assessment and findings in the medical record. The following services were provided during this hospital visit: Chart data review, vital sign assessments/reviewing monitor data Review of consultations notes if present. Medication orders/review and/or management Ordering and/or reviewing lab tests Ordering and/or interpreting/reviewing x-rays and/or diagnostic studies Care of the patient and discussion of the patient with the care team Documentation time To help prompt me to consider important information that might be impacting today's encounter and assessment, information from prior notes written by myself or my colleagues may have been "brought forward/copy and pasted" into today's note. Chacho Talley MD Nov 01, 2017 20:00
[2017-11-01] MEDS: PRAVASTATIN SOD 40 MG TAB PO SCH (20:48)
[2017-11-01] MEDS: EZETIMIBE 10 MG TAB PO SCH (20:48)
[2017-11-01] MEDS: LANSOPRAZOLE SOLUTAB 30 MG TAB PO SCH (20:48)
[2017-11-02] VITALS: BP 144/71; PULSE 74; RESP 16; TEMP 98; O2SAT 97
[2017-11-02] MEDS: ACETAMINOPHEN 325 MG TAB PO PRN (00:19)
[2017-11-02 04:00] VITALS: BP 149/78; PULSE 71; RESP 17; TEMP 97.6; O2SAT 97
[2017-11-02 07:28] LABS: AUTOMATED NEUTROPHIL # 5.6 TH/MM3 (1.8-7.7); BASOPHIL % 0.5 % (0.0-2.0); EOSINOPHIL # 0.2 TH/MM3 (0-0.4); EOSINOPHIL % 2.7 % (0.0-4.0); HEMATOCRIT 28.4 % (39.0-51.0); HEMO FLAGS DIFF FINAL; LYMPH % 13.9 % (9.0-44.0); LYMPHOCYTE # 1.1 TH/MM3 (1.0-4.8); MEAN CELL VOLUME 90.4 FL (80.0-100.0); MEAN CORPUSCULAR HEMOGLOBIN 30.9 PG (27.0-34.0); MEAN CORPUSCULAR HGB CONC 34.2 % (32.0-36.0); MONO % 10.2 % (0.0-8.0); NEUT % 72.7 % (16.0-70.0); PLATELET COUNT 277 TH/MM3 (150-450); RED BLOOD COUNT 3.14 MIL/MM3 (4.50-5.90); RED CELL DISTRIBUTION WIDTH 14.1 % (11.6-17.2); WHITE BLOOD COUNT 7.7 TH/MM3 (4.0-11.0)
[2017-11-02 07:44] LABS: BICARBONATE 28.1 MEQ/L (21.0-32.0); POTASSIUM 3.8 MEQ/L (3.5-5.1)
[2017-11-02] MEDS ORDERED: POTA20TA5 PO (07:59)
[2017-11-02] MEDS ORDERED: HYDR-3516 PO (07:59)
[2017-11-02] MEDS ORDERED: CARA1TAB6 PO (07:59)
[2017-11-02] MEDS ORDERED: CARV6.252 PO (07:59)
[2017-11-02] MEDS ORDERED: Simethicone Chew PO (07:59)
[2017-11-02] MEDS ORDERED: PREV30CA36 PO (07:59)
[2017-11-02] MEDS ORDERED: NU-IRON PO (07:59)
[2017-11-02] MEDS ORDERED: VYTO10TA8 PO (07:59)
[2017-11-02 08:00] VITALS: BP 169/85; PULSE 73; RESP 18; TEMP 96.1; O2SAT 96
[2017-11-02] MEDS ORDERED: [UNRECOGNIZED DRUG - SUPPLY] (08:00)
[2017-11-02] MEDS: SUCRALFATE 1 GM TAB PO SCH (08:00)
[2017-11-02] MEDS: POLYSACCHARIDE IRON COMPLEX 150 MG CAP PO SCH (08:47)
[2017-11-02] MEDS: POTASSIUM CHLORIDE 20 MEQ CONTROLLED RELEASE TAB PO SCH (08:47)
[2017-11-02] MEDS: CARVEDILOL 6.25 MG TAB PO SCH (08:47)
[2017-11-02] MEDS: SODIUM CHLORIDE 0.9% FLUSH 10 ML FLUSH IV FLUSH SCH (08:48)
--- NOTE | 2017-11-02 09:59 | HHI.GIFU ---
GI Follow-up Note Consult Follow-up Subjective: Patient tolerating diet. Has some mild diffuse abdominal "soreness " with coughing otherwise no abd or back pain. Objective: PHYSICAL EXAMINATION: Vitals signs stable No fever ABDOMEN: Soft, nondistended, nontender EXTREMITIES: No clubbing, cyanosis, or edema. SKIN: Normal; no rash; no jaundice. TELEPHONE TRIAGE NURSE: No focal deficits; alert and oriented times three. Available Data (labs, X- Rays, Procedues) : H&H stable ASSESSMENT/PLAN: 1. Choledocholithiasis- stable for discharge. I advised him to follow a low fat diet. He knows to f/u with general surgery for eventual cholecystectomy. 2. Post-polypectomy bleed-stable. Will arrange for outpt EMR remaining large ascending polyp after the Holidays. He agrees to be tested for attenuated FAP. OK to discharge home. Will sign off. It was a pleasure seeing Thierry Bales. Thank you for this consult. Entered by: Jason Anderson MD Nov 02, 2017 09:59
--- NOTE | 2017-11-02 11:18 | HHI.DS ---
Discharge Summary Admission Date Oct 24, 2017 at 00:06 Discharge Date: Nov 02, 2017 Admitting Diagnosis lower GI bleed (1) GI bleed ICD Codes: K92.2 - Gastrointestinal hemorrhage, unspecified Status: Chronic (2) Abdominal pain ICD Codes: R10.9 - Unspecified abdominal pain Status: Chronic (3) Choledocholithiasis ICD Codes: K80.50 - Calculus of bile duct without cholangitis or cholecystitis without obstruction Status: Acute (4) Hematochezia ICD Codes: K92.1 - Melena Status: Acute Procedures Current Medications Medications (Trade) Dose Ordered Sig/Jerilyn Route Start Time Stop Time Status Last Admin (NS Flush) 2 ml UNSCH PRN IV FLUSH 10/24/17 00:15 10/29/17 12:01 (NS Flush) 2 ml BID IV FLUSH 10/24/17 09:00 10/29/17 09:52 (Narcan Inj) 0.4 mg UNSCH PRN IV PUSH 10/24/17 00:15 (Coreg) 6.25 mg TID PO 10/24/17 09:00 10/29/17 09:51 (Zetia) 10 mg HS PO 10/24/17 21:00 10/28/17 23:04 (Pravachol) 40 mg HS PO 10/24/17 21:00 10/28/17 23:04 (Catapres) 0.1 mg Q6H PRN PO 10/24/17 11:45 10/28/17 23:15 (Tylenol) 650 mg Q4H PRN PO 10/24/17 13:15 10/27/17 23:12 (Prevacid Odt) 30 mg HS@2000 PO 10/25/17 20:00 10/28/17 23:04 (Levsin) 0.125 mg Q6H PRN SL 10/25/17 19:45 (Mylicon Chew) 80 mg Q4H PRN PO 10/25/17 20:15 10/26/17 18:05 ([place] 5-325 Mg) 1 tab Q4H PRN PO 10/26/17 07:00 10/29/17 09:51 (Carafate) 1 gm ACHS PO 10/27/17 17:00 10/29/17 12:00 Brief History 77-year-old male came to the emergency room with history of hematochezia that started at 6:45 PM. Patient says that he had 10 polyps taken out during a colonoscopy about one week ago by Dr. Hernandez. He started having some abdominal discomfort 2 days later and was started on ciprofloxacin. However when the bleeding started today he called the GI office but did not hear back from anybody. In next one hour he had 3 more such episodes. Patient describes these bleeding as big clots being passed. History of point tenderness. Just generalized discomfort in the abdomen but no point tenderness. CBC/BMP: 11/02/17 0654 11/02/17 0654 Significant Findings Laboratory Tests Test 10/30/17 12:30 10/31/17 10:37 11/01/17 06:50 11/02/17 06:54 Blood Urea Nitrogen 6 MG/DL (7-18) 5 MG/DL (7-18) 5 MG/DL (7-18) Creatinine 0.49 MG/DL (0.60-1.30) 0.48 MG/DL (0.60-1.30) Calcium Level 7.9 MG/DL (8.5-10.1) 8.1 MG/DL (8.5-10.1) 8.3 MG/DL (8.5-10.1) Potassium Level 3.3 MEQ/L (3.5-5.1) 3.3 MEQ/L (3.5-5.1) Red Blood Count 3.36 MIL/MM3 (4.50-5.90) 3.14 MIL/MM3 (4.50-5.90) Hemoglobin 10.1 GM/DL (13.0-17.0) 9.7 GM/DL (13.0-17.0) Hematocrit 30.4 % (39.0-51.0) 28.4 % (39.0-51.0) Random Glucose 125 MG/DL (74-106) Neutrophils (%) (Auto) 72.7 % (16.0-70.0) Monocytes (%) (Auto) 10.2 % (0.0-8.0) PE at Discharge GENERAL: alert and cooperative SKIN: Warm and dry. HEAD: Normocephalic. EYES: No scleral icterus. No injection or drainage. NECK: Supple, trachea midline. No JVD or lymphadenopathy. CARDIOVASCULAR: Regular rate and rhythm without murmurs, gallops, or rubs. RESPIRATORY: Breath sounds equal bilaterally. No accessory muscle use. GASTROINTESTINAL: Abdomen soft, non-tender, nondistended. MUSCULOSKELETAL: No cyanosis, or edema. Tenderness palpated in mid back region BACK: Nontender without obvious deformity. No CVA tenderness. Hospital Course 77-year-old male came to the emergency room with history of hematochezia. Patient had 10 polyps taken out during a colonoscopy about one week ago by Dr. Hernandez prior to admission He started having some abdominal discomfort and was started on ciprofloxacin. Patient describes these bleeding as big clots being passed. History of point tenderness. Just generalized discomfort in the abdomen but no point tenderness. GI and surgery consulted during his stay. Patient with post-polypectomy bleed which is stable now. Also diagnosed with choledocholithiasis low fat diet recommended. During his stay he has a ERCP and sphincterotomy was done retrieving stones. Elective cholecystectomy in the future will follow up with surgery. Discharged home with home health care. Pt Condition on Discharge: Good Discharge Disposition: Disch w/ Home Health Serv Discharge Instructions DIET: Follow Instructions for: Low Fat Diet Activities you can perform: Regular-No Restrictions Follow up Referrals: Appointment for Follow Up @ surgery PCP Follow-up @ [facility] New Medications: Walker Auto Glides/8 Adju (Walker Auto Glides/8 Adju) 1 Mis Mis EA .ROUTE DIRECTED, #1 Hydrocodone/Acetaminophen (Hydrocodone-Acetamin 5-325 mg) 5 Mg-325 Mg Tablet 1 TAB PO Q4H PRN for pain 1-10 for 7 Days, #42 TAB Polysaccharide Iron Complex (Poly-Iron 150) 150 Mg Iron Cap 150 MG PO Q12HR for Electrolyte Replacement for 30 Days, #60 CAP Potassium Chloride Microencaps (Potassium Chloride Microencaps) 20 Meq Tab 20 MEQ PO Q12HR for Electrolyte Replacement for 30 Days, TAB Sucralfate (Carafate) 1 Gram Tab 1 GM PO ACHS for Heartburn Management for 30 Days, TAB [Simethicone Chew] () 80 MG CHEW 80 MG PO Q4H PRN for GAS PAIN Continued Medications: Carvedilol (Carvedilol) 6.25 Mg Tab 6.25 MG PO TID for Blood Pressure Management, #60 TAB 0 Refills (This prescription has been renewed) Ezetimibe-Simvastatin (Vytorin) 10-20 Mg Tab 1 TAB PO HS for Blood Pressure Management, #30 TAB 0 Refills (This prescription has been renewed) Lansoprazole (Prevacid) 30 Mg Capdr 30 MG PO DAILY for Heartburn Management for 30 Days, #30 CAP 0 Refills (This prescription has been renewed) Maribeth Betancur Nov 02, 2017 11:18
== END 2017-11-02 11:41 | disposition home health service (06) | DRG 920 ==
LOC: NEPC 21:37 → NEDA 10-24 00:06 → NEPFCDU 10-24 02:44 → N06A 10-25 02:02
PROVIDERS: ADMIT Family Medicine; ATTEND Family Medicine
PROC: 30233N1 Transfusion of Nonautologous Red Blood Cells into Peripheral Vein, Percutaneous Approach (ICD-10-PCS; 2017-10-27)
PROC: 0DJD8ZZ Inspection of Lower Intestinal Tract, Via Natural or Artificial Opening Endoscopic (ICD-10-PCS; principal; 2017-10-27 11:23)
PROC: 0FC98ZZ Extirpation of Matter from Common Bile Duct, Via Natural or Artificial Opening Endoscopic (ICD-10-PCS; 2017-10-31)
PROC: BF101ZZ Fluoroscopy of Bile Ducts using Low Osmolar Contrast (ICD-10-PCS; 2017-10-31)
DX: K91.840 Postprocedural hemorrhage of a digestive system organ or structure following a digestive system procedure (principal); K63.3 Ulcer of intestine; D64.9 Anemia, unspecified; K80.50 Calculus of bile duct without cholangitis or cholecystitis without obstruction; K63.5 Polyp of colon; E87.6 Hypokalemia; K57.30 Diverticulosis of large intestine without perforation or abscess without bleeding; K64.8 Other hemorrhoids; K21.9 Gastro-esophageal reflux disease without esophagitis; I10 Essential (primary) hypertension; E78.5 Hyperlipidemia, unspecified; K82.8 Other specified diseases of gallbladder; I25.10 Atherosclerotic heart disease of native coronary artery without angina pectoris; I25.2 Old myocardial infarction; Z95.1 Presence of aortocoronary bypass graft; Z87.891 Personal history of nicotine dependence; Y83.8 Other surgical procedures as the cause of abnormal reaction of the patient, or of later complication, without mention of misadventure at the time of the procedure; Z79.82 Long term (current) use of aspirin; Z88.8 Allergy status to other drugs, medicaments and biological substances; Z91.040 Latex allergy status
CPT/HCPCS: 36430; 71111; 74177; 74181; 74330; 76377; 78278; 80048; 80053; 80076; 82150; 82378; 83690; 85007; 85014; 85018; 85025; 85027; 85610; 86850; 86900; 86901; 86920; 87493; 93005; A9560; J2354; J2370; J3480; J7030; J7040; P9016; Q9963; Q9967

== ENCOUNTER 2018-02-08 18:54 | Emergency (ER) | payer MEDICARE ==
[~2018-02-08] VITALS: Ht 182.9 cm; Wt 79.4 kg
[~2018-02-08 18:54] MED LIST changes: -ASPI1TAB57 PO; +CARA1TAB6 PO; -CARV6.252 PO; +CELE200C PO; +HYDR-3516 PO; +LOSA100T PO; +NU-IRON PO; +POTA20TA5 PO; -PRED5TAB PO; +Simethicone Chew PO
[2018-02-08 19:06] VITALS: BP 212/96; PULSE 67; RESP 18; TEMP 98.2; O2SAT 96
--- NOTE | 2018-02-08 21:05 | PD ---
HPI Chief Complaint: Complaint Time Seen by Provider: 21:00 Travel History International Travel<30 days: No Contact w/Intl Traveler<30days: No Traveled to known affect area: No History of Present Illness HPI 77-year-old male presents to the emergency department by private transportation for complaint of urinary retention. According to the patient earlier today at [facility] he underwent elective laparoscopic cholecystectomy. Patient states while he was in recovery he was having difficulty with urination and an in and out catheter was performed to enter his bladder. Patient was encouraged to go home increase fluid hydration and return to the [facility] if he had recurrent urinary retention. Patient states he has not urinated since 2:30 PM. Patient states because he did not want to make a long distance travel from his home to [facility] where he had his procedure performed he decided to come here for his concern of urinary retention. Patient also complains of burning with urination since having the catheterization this afternoon. Patient denies fever chills nausea vomiting shortness of breath chest pain pleuritic chest pain generalized weakness and states she has had minimal flatus. Patient has been drinking a small amount of fluids this afternoon a couple coffee and some water. Patient has had previous TURP and is followed by Dr. Arora is his urologist. Patient states he tried to reach his urologist but the office was closed. Patient rates his discomfort 3/10 intensity. Patient is not prescribed any blood thinning agents. Patient is not taking an antibiotic. PFSH Past Medical History Narrative Medical Arthritis cardiac catheterization and CABG dyslipidemia hypertension CAD cholecystectomy TURP; no tobacco use no alcohol use; nursing notes Arthritis: Yes Heart Rhythm Problems: No Cancer: Yes (LEFT EAR CA, WAS REMOVED) Cardiac Catheterization: Yes Cardiovascular Problems: Yes (BYPASS X 5) High Cholesterol: Yes Chemotherapy: No Chest Pain: Yes Congestive Heart Failure: No Coronary Artery Disease: Yes Endocrine: No GERD: No Genitourinary: No Hiatal Hernia: No Hypertension: Yes Immune Disorder: No Neurologic: No Psychiatric: No Reproductive: No Respiratory: No Immunizations Current: Yes Myocardial Infarction: Yes (x 2) Radiation Therapy: No Ulcer: No Past Surgical History Abdominal Surgery: No Cardiac Surgery: No Coronary Artery Bypass Graft: Yes Ear Surgery: No Endocrine Surgery: No Eye Surgery: No Genitourinary Surgery: Yes (turp) Gynecologic Surgery: No Oral Surgery: No Thoracic Surgery: No Other Surgery: Yes (pacemaker) Social History Alcohol Use: No Tobacco Use: No Substance Use: No Allergies-Medications (Allergen,Severity, Reaction): Coded Allergies: hydromorphone (Unverified Allergy, Severe, HALLUCINATIONS; AGITATION, 02/08) latex (Unverified Adverse Reaction, Severe, SKIN IRRITATION, 02/08/18) metoprolol (Unverified Adverse Reaction, Severe, FORGETS, BUT AVOIDS, 02/08) Reported Meds & Prescriptions Reported Meds & Active Scripts Active Carafate (Sucralfate) 1 Gram Tab 1 Gm PO ACHS 30 Days [Simethicone Chew] 80 MG Chew 80 Mg PO Q4H PRN Potassium Chloride Microencaps 20 Meq Tab 20 Meq PO Q12HR 30 Days Hydrocodone-Acetamin 5-325 mg (Hydrocodone/Acetaminophen) 5 Mg-325 Mg Tablet 1 Tab PO Q4H PRN 7 Days Poly-Iron 150 (Polysaccharide Iron Complex) 150 Mg Iron Cap 150 Mg PO Q12HR 30 Days Prevacid (Lansoprazole) 30 Mg Capdr 30 Mg PO DAILY 30 Days Vytorin (Ezetimibe-Simvastatin) 10-20 Mg Tab 1 Tab PO HS Reported Celebrex (Celecoxib) 200 Mg Cap 200 Mg PO DAILY Losartan (Losartan Potassium) 100 Mg Tab 100 Mg PO DAILY Review of Systems Except as stated in HPI: all other systems reviewed are Neg General / Constitutional: No: Fever, Chills HENT: No: Congestion Cardiovascular: No: Chest Pain or Discomfort Respiratory: No: Shortness of Breath, Pleuritic Pain Gastrointestinal: No: Nausea, Vomiting, Abdominal Pain Genitourinary: Positive: Dysuria, Decreased Urinary Output, Hesitancy Musculoskeletal: No: Myalgias Neurologic: No: Weakness Psychiatric: No: Anxiety Hematologic/Lymphatic: No: Lymph Node Enlargement Physical Exam Narrative GENERAL: Well-developed well-nourished male no acute distress no respiratory distress SKIN: Warm and dry. HEAD: Normocephalic. EYES: No scleral icterus. No injection or drainage. NECK: Supple, trachea midline. No JVD or lymphadenopathy. CARDIOVASCULAR: Regular rate and rhythm without murmurs, gallops, or rubs. RESPIRATORY: Breath sounds equal bilaterally. No accessory muscle use. GASTROINTESTINAL: Abdomen soft, non-tender, nondistended. Laparoscopy sites dressings are dry no oozing serous or serosanguineous or seropurulent drainage no induration nontender. No suprapubic tenderness or distention. MUSCULOSKELETAL: No cyanosis, or edema. BACK: Nontender without obvious deformity. No CVA tenderness. Data Data Last Documented VS Vital Signs Date Time Temp Pulse Resp B/P (MAP) Pulse Ox O2 Delivery O2 Flow Rate FiO2 02/08/18 19:06 98.2 67 18 212/96 (134) 96 Orders Orders Basic Metabolic Panel (Bmp) (02/08/18 21:08) Urinalysis - C+S If Indicated (02/08/18 21:08) Urinary Catheter Insert/Apply (02/08/18 21:08) Lidocaine 2% Jelly (Xylocaine 2% Jelly) (02/08/18 21:15) Sodium Chlorid 0.9% 500 Ml Inj (Ns 500 M (02/08/18 21:15) Sodium Chlorid 0.9% 500 Ml Inj (Ns 500 M (02/08/18 23:45) Ed Discharge Order (02/08/18 23:42) Labs Laboratory Tests Test 02/08/18 21:49 02/08/18 22:04 Urine Color YELLOW Urine Turbidity CLEAR Urine pH 6.0 Urine Specific [place] 1.020 Urine Protein NEG mg/dL Urine Glucose (UA) NEG mg/dL Urine Ketones 15 mg/dL Urine Occult Blood NEG Urine Nitrite NEG Urine Bilirubin NEG Urine Urobilinogen 0.2 MG/DL Urine Leukocyte Esterase NEG Urine RBC 0-2 /hpf Urine WBC 0-2 /hpf Urine Squamous Epithelial Cells 0-5 /hpf Urine Bacteria NONE /hpf Microscopic Urinalysis Comment CULT NOT INDICATED Blood Urea Nitrogen 7 MG/DL Creatinine 0.86 MG/DL Random Glucose 132 MG/DL Calcium Level 8.6 MG/DL Sodium Level 137 MEQ/L Potassium Level 4.7 MEQ/L Chloride Level 101 MEQ/L Carbon Dioxide Level 28.4 MEQ/L Anion Gap 8 MEQ/L Estimat Glomerular Filtration Rate 86 ML/MIN MDM Medical Decision Making Medical Screen Exam Complete: Yes Emergency Medical Condition: Yes Medical Record Reviewed: Yes Interpretation(s) CBC & BMP Diagram 02/08/18 22:04 Calcium Level 8.6 Vital Signs Date Time Temp Pulse Resp B/P (MAP) Pulse Ox O2 Delivery O2 Flow Rate FiO2 02/08/18 19:06 98.2 67 18 212/96 (134) 96 UA: Scant ketones otherwise normal; culture not indicated Differential Diagnosis Urinary retention, anesthesia side effects, renal insufficiency, UTI Narrative Course Bladder scan ordered approx 500 ml Urinary catheter inserted; lab values found to be in normal range Patient received additional 500 cc bolus of normal saline and taking oral hydration well urinary catheter removed Diagnosis Primary Impression: Urinary retention Referrals: Rolan Waldron MD 3 days Patient Instructions: General Instructions Additional Instructions: Increase fluid hydration Return to the emergency department for any concerns or change in condition Take acetaminophen/Tylenol as needed for fever 100.4F or greater Disposition: 01 DISCHARGE HOME Condition: Stable Lisa Odraz MD Feb 08, 2018 21:05
[2018-02-08] MEDS ORDERED: LIDOCAINE HCL 2% JELLY 5 ML SYRINGE TOPICAL ONE (21:15)
[2018-02-08] MEDS ORDERED: SODIUM CHLORID 0.9% 500 ML INJ 500 ML IV ONE ×2 (21:15→23:45)
[2018-02-08 21:55] LABS: BILIRUBIN, URINE NEG (NEG); BLOOD, URINE NEG (NEG); GLUCOSE,URINE NEG (NEG); KETONE, URINE 15 mg/dL (NEG); NITRITE,URINE NEG (NEG); URINE COLOR YELLOW (YELLW/STRAW); URINE LEUKOCYTE ESTERASE NEG (NEG)
[2018-02-08 22:02] LABS: RBC, URINE 0-2 /hpf (0-3); SQUAMOUS EPITHELIAL CELL URINE 0-5 /hpf (0-5); WBC, URINE 0-2 /hpf (0-5)
[2018-02-08 22:31] LABS: CALCIUM 8.6 MG/DL (8.5-10.1)
[2018-02-08 22:32] LABS: BICARBONATE 28.4 MEQ/L (21.0-32.0)
[2018-02-08 22:35] LABS: CREATININE 0.86 MG/DL (0.60-1.30)
[2018-02-08 23:53] VITALS: BP 151/79; PULSE 82; RESP 16; O2SAT 97
== END 2018-02-09 00:41 | disposition home or self-care (01) ==
LOC: PHED 18:54
DX: R33.9 Retention of urine, unspecified (principal); R30.0 Dysuria; I10 Essential (primary) hypertension; I25.10 Atherosclerotic heart disease of native coronary artery without angina pectoris; E78.5 Hyperlipidemia, unspecified; I25.2 Old myocardial infarction; Z98.890 Other specified postprocedural states; Z95.1 Presence of aortocoronary bypass graft
CPT/HCPCS: 80048; 81001; 96360; 99284; J7040; P9612